=== PATIENT | male | born 1950 ===

== ENCOUNTER 2016-11-22 06:54 | Inpatient (IN) | payer MEDICARE, OTHER ==
[2016-11-22] MEDS ORDERED: Labetalol 5mg/ml (4ml) ONE (07:48)
[2016-11-22] MEDS ORDERED: Albuterol 0.083% Inhal Sol (2.5 mg/3 mL) UD ONE (07:49)
[2016-11-22] MEDS ORDERED: Albuterol 0.083% Inhal Sol (2.5 mg/3 mL) UD INH ONE (07:52)
[2016-11-22] MEDS ORDERED: Labetalol 5 mg/ml Inj 20ML IVP STA (07:52)
--- NOTE | 2016-11-22 08:16 | ED PDOC ---
HPI: SOB/CHF/COPD Time Seen by Provider: 11/22/16 07:05 Chief Complaint (Nursing): Cough, Cold, Congestion Chief Complaint (Provider): Cough, Cold, Congestion History Per: Patient History/Exam Limitations: no limitations Onset/Duration Of Symptoms: Days Current Symptoms Are (Timing): Still Present Initiating Event: Upper Respiratory Illness Quality: Tightness Exacerbating Factor(s): Coughing Current Respiratory Medications: See Home Med List Severity: Mild Additional Complaint(s): Patient is a 66 year old male who presents to ED for evaluation of SOB with cough and congestion for 3 days. no chest pain, fever or vomiting. Patient reports a history of HTN but has been non-compliant with medication. States [place] but has not followed up with doctors in years Past Medical History Reviewed: Historical Data, Nursing Documentation, Vital Signs Vital Signs: Last Vital Signs Temp 98.5 F 11/22/16 07:07 Pulse 110 H 11/22/16 11:37 Resp 20 11/22/16 08:10 BP 167/112 H 11/22/16 09:06 Pulse Ox 95 11/22/16 11:37 - Medical History PMH: HTN - Surgical History Surgical History: Cholecystectomy - Family History Family History: States: No Known Family Hx - Living Arrangements Living Arrangements: With Family - Social History Current smoker - smoking cessation education provided: No Alcohol: None Drugs: Denies - Home Medications Home Medications: Ambulatory Orders Medication Instructions Recorded Losartan [Cozaar] 100 mg PO DAILY 11/22/16 amLODIPine [Norvasc] 5 mg PO DAILY 11/22/16 - Allergies Allergies/Adverse Reactions: Allergies Allergy/AdvReac Type Severity Reaction Status Date / Time No Known Allergies Allergy Verified 11/22/16 07:11 Review of Systems ROS Statement: Except As Marked, All Systems Reviewed And Found Negative Constitutional: Negative for: Fever, Chills Cardiovascular: Negative for: Chest Pain, Palpitations, Light Headedness Respiratory: Positive for: Cough, Shortness of Breath. Negative for: SOB with Exertion Gastrointestinal: Negative for: Vomiting, Diarrhea Musculoskeletal: Negative for: Neck Pain Neurological: Negative for: Weakness, Numbness, Dizziness Physical Exam - Reviewed Nursing Documentation Reviewed: Yes Vital Signs Reviewed: Yes - Physical Exam Appears: Positive for: Non-toxic, No Acute Distress Skin: Positive for: Normal Color, Warm. Negative for: Rash Eye Exam: Positive for: Normal appearance Neck: Positive for: Normal, Painless ROM Cardiovascular/Chest: Positive for: Regular Rate, Rhythm, Chest Non Tender. Negative for: Murmur Respiratory: Positive for: Decreased Breath Sounds (bilaterally ), Rhonchi ( bilateral). Negative for: Accessory Muscle Use, Wheezing, Respiratory Distress Gastrointestinal/Abdominal: Positive for: Normal Exam (obese). Negative for: Tenderness, Distended Back: Positive for: Normal Inspection Extremity: Positive for: Normal ROM, Pedal Edema Neurologic/Psych: Positive for: Alert, Oriented - Laboratory Results Result Diagrams: 11/22/16 08:26 11/22/16 08:26 - ECG ECG: Positive for: Interpreted By Me ECG Rhythm: Positive for: Normal ST Segment, Right Bundle Branch Block, Premature Ventricular Contraction Rate: 110 O2 Sat by Pulse Oximetry: 95 (RA) Pulse Ox Interpretation: Normal - Radiology X-Ray: Interpreted by Me, Viewed By Me X-Ray Interpretation: Other (chf) - Critical Care Total Time (In Min): 30 Medical Decision Making Medical Decision Making: Time: 0750 Initial impression: SOB with cough Initial plan: -- EKG -- BnP -- CMP -- Troponin -- CBC -- CXR -- Albuterol and Trandate Time: 0900 Lab results reviewed Troponin elevated [place] 4.07 [place] [id number] Time: 0810 Supply Chain Development Manager continuous improvement director, Dr. Hatfield aware of pt- requesting heparin and will evaluate patient at bedside Time: 1030 Dr. Brown accepted patient for admission (med continuous improvement director, pts doc not here) Diagnosis: Non ST elevation OH and hypertensive urgency Time: 1115 CXR results reviewed HISTORY: short of breath COMPARISON: No prior. TECHNIQUE: Chest PA and lateral FINDINGS: LUNGS: Mild mild pulmonary venous congestion with bibasilar atelectasis and/or early developing alveolar-type infiltrates. Questionable tiny bilateral effusions. PLEURA: As above No pneumothorax apparent. CARDIOVASCULAR: Normal. OSSEOUS STRUCTURES: No significant abnormalities. VISUALIZED UPPER ABDOMEN: Normal. OTHER FINDINGS: None. IMPRESSION: Mild mild pulmonary venous congestion with bibasilar atelectasis and/or early developing alveolar-type infiltrates. Questionable tiny bilateral effusions. Time: 1125 Dr. Petit, Code heart interventionalist, will not take patient at this time due to not being STEMI Dr. Hatfield evaluated patient at bedside and wants patient upgraded to ICU Paging ICU at this time Time: 1135 ICU electrical superintendent made aware of patient also i ordered antibiotics for possible ?early infiltrate noted on radiologist read of cxr Diagnosis: NSTEMI hypertensive urgency Scribe Attestation: Documented by Maggie Salas acting as a scribe for Radha Rodriguez MD MD Scribe Attestation: All medical record entries made by the Scribe were at my direction and personally dictated by me. I have reviewed the chart and agree that the record accurately reflects my personal performance of the history, physical exam, medical decision making, and the department course for this patient. I have also personally directed, reviewed, and agree with the discharge instructions and disposition.-- EKG Disposition - Clinical Impression Clinical Impression: NSTEMI (non-ST elevated myocardial infarction), Hypertensive urgency, CHF ( congestive heart failure) - Patient ED Disposition Is Patient to be Admitted: Yes - Disposition Disposition Time: 10:00 Condition: STABLE
[2016-11-22 08:40] LABS: BASO # 0.1 K/uL (0.0-0.2); BASO % 0.5 % (0.0-2.0); EOS # 0.2 K/uL (0.0-0.7); EOS % 1.5 % (0.0-4.0); HEMATOCRIT 38.9 % (35.0-51.0); LYMPH # 1.5 K/uL (1.0-4.3); LYMPH % 12.9 % (20.0-40.0); MEAN CELL VOLUME 93.1 fl (80.0-94.0); MEAN CORPUSCULAR HEMOGLOBIN 29.9 pg (27.0-31.0); MEAN CORPUSCULAR HGB CONC 32.1 g/dL (33.0-37.0); MEAN PLATELET VOLUME 8.9 fl (7.2-11.7); MONO # 0.6 K/uL (0.0-0.8); NEUT # 9.2 K/uL (1.8-7.0); NEUT % 80.1 % (50.0-75.0); RED CELL DISTRIBUTION WIDTH 15.3 % (11.5-14.5); WHITE BLOOD COUNT 11.5 K/uL (4.8-10.8)
[2016-11-22 08:43] LABS: ALB/GLOB RATIO 1.2 (1.0-2.1); BILIRUBIN,TOTAL 0.5 mg/dl (0.2-1.3); POTASSIUM 4.7 MMOL/L (3.6-5.0); TOTAL PROTEIN 7.5 G/DL (6.3-8.2)
[2016-11-22 08:57] LABS: TROPONIN I 4.07 ng/mL (0.00-0.120)
--- NOTE | 2016-11-22 11:14 | RAD ---
HISTORY: short of breath COMPARISON: No prior. TECHNIQUE: Chest PA and lateral FINDINGS: LUNGS: Mild mild pulmonary venous congestion with bibasilar atelectasis and/or early developing alveolar-type infiltrates. Questionable tiny bilateral effusions. PLEURA: As above No pneumothorax apparent. CARDIOVASCULAR: Normal. OSSEOUS STRUCTURES: No significant abnormalities. VISUALIZED UPPER ABDOMEN: Normal. OTHER FINDINGS: None. IMPRESSION: Mild mild pulmonary venous congestion with bibasilar atelectasis and/or early developing alveolar-type infiltrates. Questionable tiny bilateral effusions.
[2016-11-22 11:52] LABS: PARTIAL THROMBOPLASTIN TIME 29.4 SECONDS (23.3-32.5)
[2016-11-22] MEDS ORDERED: Heparin 25,000units in D5W 25,000 UNITS/250 ML BAG IV SCH ×2 (12:00→12:30)
[2016-11-22] MEDS ORDERED: Heparin25000 units/250ml 1/2NS 25,000 UNITS/250 ML BAG IV ONE (12:38)
--- NOTE | 2016-11-22 12:52 | CON ---
DATE: 11/22/2016 REASON FOR CONSULTATION: Shortness of breath and acute myocardial infarction. HISTORY OF PRESENT ILLNESS: The patient is a 66-year-old male who has a history of heart at tack some 6 or 7 years ago and does not recall having any intervention. He is on no medications. He noticed shortness of breath since yesterday and what he describes as asthma. The patient has no will or history of bronchial asthma and he presented to the Emergency Room. He denies any retrosternal ch est pain. The patient is unaware of any kidney issues. The patient does not see a physician and bam es no medications at home. SOCIAL HISTORY: Nonsmoker. He is with 2 children who are coming to visit him in few hours a ccording to him. MEDICATIONS: It is listed by ER that the patient was on Norvasc 5 mg once a day, Cozaar 100 mg once a day, but he denied taking any medications to me. REVIEW OF SYSTEMS: No nausea or vomiting. No fever or chills. No dizziness or syncope. PHYSICAL EXAMINATION: GENERAL: The patient is an elderly male who is mildly tachypneic but does not appear to be in acute distress. VITAL SIGNS: Blood pressure 167/112, heart rate 110, temperature 98.5, respirations 20. HEENT: Normocephalic. NECK: No JVD. CHEST: Bilateral diffuse rhonchi. HEART: S1, S2 regular. ABDOMEN: Soft. EXTREMITIES: 2+ pedal edema. LABORATORIES: Hemoglobin and hematocrit are 12.5 and 38.9. White count and platelet count are 11.5 and 258,000. Today's BUN and creatinine are 36 and 3.1 respectively. Troponin is 4.07. ProBNP is 1 4,800. Glucose 113. Chest x-ray revealed normal cardiac silhouette size, moderate CHF. EKG revealed sinus tachycardia at rate 110, left atrial enlargement, right bundle branch block, consider inferior ischemia, PVCs were noted. ASSESSMENT: 1. Acute zxp-AI-uvcnpuely myocardial infarction. 2. Advanced chronic renal insufficiency. 3. Congestive heart failure, most likely ischemic cardiomyopathy. 4. Diabetes mellitus. RECOMMENDATIONS: The case was discussed with the ER physician. The patient was started on heparin b olus followed by continuous infusion. I will start aspirin 325 mg now and daily. Plavix loading dos e of 300 mg will be given now. The patient is not a suitable candidate for FANI inhibitors. I will o btain a bedside echo. The patient will be observed in ICU. The code heart on-call chief deputy, Dr. Rain, was notified with the case and he will be on standby according to the ER physician's discussio n with him. Gopi Monteiro MD cc: [id number] TT: 11/22/2016 12:51:23 Confirmation # [id number] Dictation # [id number] mn
--- NOTE | 2016-11-22 15:08 | CP.CCUPN ---
<Bolivar Dial - Last Filed: 11/22/16 16:14> CCU Subjective - Physician Review Subjective (Free Text): 11/22/16 15:04 66 y/o obese male with PMH of HTN presented to ED with 2 day history of progressive SOB. Patient reports symptoms may have started gradually since one week ago. Initially he thought symptoms were associated with seasonal allergies because of associated itchy eyes and nasal congestion. He presented to a walk-in clinic and was prescribed some type of inhaler, which did not help. Patient reports over the last 2 days he has also felt increasing fatigue and has noticed swelling of his lower extremities. He normally sleeps with 1 pillow at night but has increased to 3 pillows due to SOB. He denies SOB when ambulating around his apartment but does feel SOB upon climbing 8 stairs. Currently patient denies chest pain but notes a feeling of chest tightness. He further denies fevers, chills, headache, dizziness, visual disturbances, focal weakness, abdominal pain, nausea or vomiting. Patient has not been followed by a primary physician for approximately 20 years and has been inconsistently taking antihypertensive medications, which he purchased in [facility]. He was told 5 years ago by a physician in [facility] that he may have suffered a minor heart attack but was not admitted to a hospital at that time. He reports taking amlodipine 5mg twice a day in addition to another unknown BP medication. His mother and father from [place] at ages 74 and 78 respectively. CCU Objective - Vital Signs / Intake & Output Vital Signs (Last 4 hours): Vital Signs Temp Pulse Resp BP Pulse Ox 11/22/16 14:49 98.3 F 76 18 146/99 H 99 11/22/16 14:44 98.3 F 76 18 145/99 H 11/22/16 12:36 154/80 H 11/22/16 12:06 110 H 95 - Physical Exam Head: Positive for: Atraumatic, Normocephalic Pupils: Positive for: PERRL Extroacular Muscles: Positive for: EOMI Conjunctiva: Positive for: Normal Mouth: Positive for: Moist Mucous Membranes Neck: Positive for: Normal Range of Motion Respiratory/Chest: Positive for: Rales (appreciated at lung bases b/l), Other (B /L air entry present. ). Negative for: Respiratory Distress, Accessory Muscle Use, Wheezes, Tachypneic Cardiovascular: Positive for: Regular Rate and Rhythm, Normal S1, S2, Peripheal Pulses Present. Negative for: Tachycardic Abdomen: Positive for: Normal Bowel Sounds. Negative for: Tenderness, Distention, Guarding Upper Extremity: Positive for: Normal Inspection, NORMAL PULSES, Capillary Refill < 2s Lower Extremity: Positive for: Edema (3+). Negative for: CALF TENDERNESS Neurological: Positive for: CN II-XII Intact, Speech Normal Skin: Positive for: Warm, Dry. Negative for: Diaphoretic Psychiatric: Positive for: Alert, Oriented x 3, Normal Insight, Normal Concentration - Medications Active Medications: Active Medications Generic Name Dose Route Start Last Admin Trade Name Freq PRN Reason Stop Dose Admin Heparin Sodium/Dextrose 25,000 units in 250 mls @ 10 mls/hr 11/22/16 12:30 12:53 Heparin 25,000 Units/250ml In D5w IV 10 mls/hr .Q24H CATHY Administration Protocol - Patient Studies Lab Studies: Lab Studies 11/22/16 Range/Units 11:00 PT 10.0 (9.6-11.2) SECONDS INR 0.96 (0.92-1.08) APTT 29.4 (23.3-32.5) SECONDS Laboratory Results - last 24 hr 11/22/16 11:00 PT 10.0 INR 0.96 APTT 29.4 Review of Systems - Constitutional Constitutional: absent: Fever, Chills - EENT Eyes: absent: Change in Vision - Cardiovascular Cardiovascular: Dyspnea, Leg Edema, Other (Chest tightness). absent: Chest Pain - Respiratory Respiratory: Dyspnea, Dyspnea on Exertion. absent: Cough, Wheezing - Gastrointestinal Gastrointestinal: absent: Abdominal Pain, Diarrhea, Nausea, Vomiting - Neurological Neurological: absent: Confusion, Dizziness, Focal Weakness, Paresthesias Assessment/Plan - Assessment and Plan (Free Text) Assessment: 66 y/o obese male with PMH of HTN presented to ED with 2 day history of progressive SOB and chest tightness. In the ED patient was found to have NSTEMI and was admitted to ICU for close monitoring pending further cardiac intervention. Plan: NSTEMI -EKG performed in ED reveals Right bundle branch block nonspecific t wave inversions with no ST elevations -Initial troponin elevated at 4.0700. Continue serial monitoring. -Patient received ASA 325mg and loading dose of Plavix 300mg -Heparin bolus started followed by continuous infusion -ED contacted Dr Petit, code heart interventionalist who is on standby -Cardiology consultation by Dr Monteiro appreciated -Admit to ICU with continuous cardiac monitoring -O2 via NC -Continue daily ASA and plavix -Patient not a good candidate for FANI-i at this time Acute Heart Failure with Preserved Ejection Fraction -Bedside echo reveals normal LV wall thickness and ED of 50-55%. Mild inferior wall hypokinesis was also detected however study was technically difficult. -ProBNP [id number] -Lasix 40mg IV BID -Strict I/Os -Daily weights -Cardiology following Acute vs Chronic Kidney Injury -Patient unaware of any existing kidney disease -BUN/Cr: 36/3.1 -Will consult nephrology Hypertensive urgency -Patient has been inconsistently taking amlodipine 5mg BID and losartan 100mg daily, [place] -Initial BP: 211/127. Currently 146/99. -Received labetalol 20mg IV and clonidine 0.2mg PO once in ED -Will maintain gradual BP lowering to acheive BP goal within several days -Metoprolol 25mg PO Q12 started and will consider Hydralazine as needed DVT Prophylaxis -On heparin drip -SCDs Code Status -Full code <Edwar Chow - Last Filed: 11/22/16 17:14> CCU Objective - Vital Signs / Intake & Output Vital Signs (Last 4 hours): Vital Signs Temp Pulse Resp BP Pulse Ox 11/22/16 14:49 98.3 F 76 18 146/99 H 99 11/22/16 14:44 98.3 F 76 18 145/99 H Intake and Output (Last 8hrs): Intake & Output 11/22/16 11/22/16 11/22/16 06:59 14:59 22:59 Output Total 400 Balance -400 Weight 226 lb Output: Urine 400 Urine, Voided 400 - Medications Active Medications: Active Medications Generic Name Dose Route Start Last Admin Trade Name Freq PRN Reason Stop Dose Admin Aspirin 325 mg 11/23/16 09:00 Aspirin PO DAILY CATHY Clopidogrel Bisulfate 75 mg 11/23/16 09:00 Plavix PO DAILY CATHY Furosemide 40 mg 11/23/16 09:00 Lasix IVP BID CATHY Heparin Sodium/Dextrose 25,000 units in 250 mls @ 10 mls/hr 11/22/16 12:30 12:53 Heparin 25,000 Units/250ml In D5w IV 10 mls/hr .Q24H CATHY Administration Protocol Sodium Chloride 1,000 mls @ 60 mls/hr 11/22/16 17:15 Sodium Chloride 0.9% IV 11/23/16 17:09 .[id number] CATHY Metoprolol Tartrate 25 mg 11/22/16 21:00 Lopressor PO Q12 CATHY Morphine Sulfate 2 mg 11/22/16 15:39 Morphine IVP Q6H PRN Pain, moderate (4-7) - Patient Studies Lab Studies: Lab Studies 11/22/16 Range/Units 11:00 PT 10.0 (9.6-11.2) SECONDS INR 0.96 (0.92-1.08) APTT 29.4 (23.3-32.5) SECONDS Laboratory Results - last 24 hr 11/22/16 11:00 PT 10.0 INR 0.96 APTT 29.4 Critical Care Progress Note - Nutrition Nutrition: Nutrition Category Date Time Status Heart Healthy Diet [DIET] Diets 11/22/16 Dinner Active Attending/Attestation - Attestation I have personally seen and examined this patient.: Yes I have fully participated in the care of the patient.: Yes I have reviewed all pertinent clinical information: Yes Notes (Text): 11/22/16 17:11 I have seen and examined the patient. Medical records, lab studies, and imaging were reviewed by me and a management plan was formulated on multidisciplinary rounds with resident Dr. Dial. I agree with their above documented assessment and plan. Patient presented with NSTEMI, on heparin drip, plavix, ASA, metoprolol bid. HTN emergency with acute on chronic CKD, blood pressure controlled, will not reduce more than 25% in the first 24h. Gradual reduction over 24-48h. Cardiology consulted and following. Critical Care Time 35 minutes. Multi-disciplinary rounds were performed with house staff, nursing, speech therapy, respiratory therapy, pharmacy and nutrition with integrated input from the primary team/attending and other consulting services. The documented time is cumulative and includes review of patient data/exams/labs/chart review and examination of the patient on rounds and throughout the day; time is exclusive of any procedures or teaching time. 11/22/16 17:12
--- NOTE | 2016-11-22 15:27 | CARD ---
APPROVED REPORT EXAM: Two-dimensional and M-mode echocardiogram with Doppler and color Doppler. Other Information Quality : AverageRhythm : PVC's INDICATION Hypertension/HCVD Non STEMI WI 2D DIMENSIONS IVSd1.30 (0.7-1.1cm)LVDd4.00 (3.9-5.9cm) LVOT Diameter2.64 (1.8-2.4cm)PWd1.85 (0.7-1.1cm) IVSs1.89 (0.8-1.2cm)LVDs3.66 (2.5-4.0cm) FS (%) 8.5 %PWs1.69 (0.8-1.2cm) M-Mode DIMENSIONS Left Atrium (MM)5.79 (2.5-4.0cm)IVSd1.12 (0.7-1.1cm) Aortic Root3.20 (2.2-3.7cm)LVDd7.18 (4.0-5.6cm) Aortic Cusp Exc.2.16 (1.5-2.0cm)PWd1.20 (0.7-1.1cm) IVSs1.93 cmFS (%) 26 % LVDs5.29 (2.0-3.8cm)PWs1.81 cm Mitral Valve MV E Nywrierm94.6cm/sMV DECEL [id number] A Zntsfkwb86.8cm/s MV [id number]/A ratio1.7MVA (PHT)4.21cm2 TDI Lateral E' Peak V7.74cm/sMedial E' Peak V4.89cm/sE/Lateral E'8.9 E/Medial E'14.0 LEFT VENTRICLE The left ventricle is normal size. There is normal left ventricular wall thickness. The left ventricular function is normal. The left ventricular ejection fraction is 50-55% There is mild inferior wall hypokinesis. The apex and infero-apex could not be well visualized. The left ventricular diastolic function is normal. No left ventricle thrombus noted on this study. There is no ventricular septal defect visualized. There is no left ventricular aneurysm. There is no mass noted in the left ventricle. RIGHT VENTRICLE The right ventricle is normal size. There is normal right ventricular wall thickness. The right ventricular systolic function is normal. ATRIA The left atrium size is normal. The right atrium size is normal. The interatrial septum is intact with no evidence for an atrial septal defect. AORTIC VALVE The aortic valve is normal in structure and function. No aortic regurgitation is present. There is no aortic valvular stenosis. There is no aortic valvular vegetation. MITRAL VALVE The mitral valve is normal in structure and function. There is no evidence of mitral valve prolapse. There is no mitral valve stenosis. There is no mitral valve regurgitation noted. TRICUSPID VALVE The tricuspid valve is normal in structure and function. There is no tricuspid valve regurgitation noted. There is no tricuspid valve prolapse or vegetation. There is no tricuspid valve stenosis. PULMONIC VALVE The pulmonary valve is normal in structure and function. There is no pulmonic valvular regurgitation. There is no pulmonic valvular stenosis. GREAT VESSELS The aortic root is normal in size. The ascending aorta is normal in size. The IVC is normal in size and collapses >50% with inspiration. PERICARDIAL EFFUSION The pericardium appears normal. There is no pleural effusion. <Conclusion> Technically Difficult Study All myocardial segments were not clearly visualized Mild Inferior wall hypokinesis( seen best in short axis) Normal LV systolic function
[2016-11-22 15:35] VITALS: BMI 36.4
[2016-11-22] MEDS ORDERED: Sodium Chloride 0.9% 1,000 ML IV SCH (17:15)
--- NOTE | 2016-11-22 21:38 | CP.PCM.CON ---
History of Present Illness - History of Present Illness History of Present Illness: REASON FOR CONSULT : ACUTE Vs CKD Vs A ON CKD THIS IS VERY FIRST ADMISSION FOR THIS PT .. NO PREVIOUS EMR EXIST CHART REVIEWED .. PT EXAMINED 66 y/o obese male with PMH of HTN presented to ED with 2 day history of progressive SOB. Patient reports symptoms may have started gradually since one week ago. Initially he thought symptoms were associated with seasonal allergies because of associated itchy eyes and nasal congestion. He presented to a walk-in clinic and was prescribed some type of inhaler, which did not help. Patient reports over the last 2 days he has also felt increasing fatigue and has noticed swelling of his lower extremities. He normally sleeps with 1 pillow at night but has increased to 3 pillows due to SOB. He denies SOB when ambulating around his apartment but does feel SOB upon climbing 8 stairs. Currently patient denies chest pain but notes a feeling of chest tightness. He further denies fevers, chills, headache, dizziness, visual disturbances, focal weakness, abdominal pain, nausea or vomiting. Patient has not been followed by a primary physician for approximately 20 years and has been inconsistently taking antihypertensive medications, which he purchased in [facility]. He was told 5 years ago by a physician in [facility] that he may have suffered a minor heart attack but was not admitted to a hospital at that time. He reports taking amlodipine 5mg twice a day in addition to another unknown BP medication. His mother and father from [place] at ages 74 and 78 respectively. CCU Objective - Vital Signs / Intake & Output Vital Signs (Last 4 hours): Vital Signs Temp Pulse Resp BP Pulse Ox 11/22/16 14:49 98.3 F 76 18 146/99 H 99 11/22/16 14:44 98.3 F 76 18 145/99 H 11/22/16 12:36 154/80 H 11/22/16 12:06 110 H 95 - Physical Exam Head: Positive for: Atraumatic, Normocephalic Pupils: Positive for: PERRL Extroacular Muscles: Positive for: EOMI Conjunctiva: Positive for: Normal Mouth: Positive for: Moist Mucous Membranes Neck: Positive for: Normal Range of Motion Respiratory/Chest: Positive for: Rales (appreciated at lung bases b/l), Other (B /L air entry present. ). Negative for: Respiratory Distress, Accessory Muscle Use, Wheezes, Tachypneic Cardiovascular: Positive for: Regular Rate and Rhythm, Normal S1, S2, Peripheal Pulses Present. Negative for: Tachycardic Abdomen: Positive for: Normal Bowel Sounds. Negative for: Tenderness, Distention, Guarding Upper Extremity: Positive for: Normal Inspection, NORMAL PULSES, Capillary Refill < 2s Lower Extremity: Positive for: Edema (3+). Negative for: CALF TENDERNESS Neurological: Positive for: CN II-XII Intact, Speech Normal Skin: Positive for: Warm, Dry. Negative for: Diaphoretic Psychiatric: Positive for: Alert, Oriented x 3, Normal Insight, Normal Concentration Past Patient History - Past Medical History & Family History Past Medical History?: Yes - Past Social History Smoking Status: Never Smoked - CARDIAC Hx Cardiac Disorders: Yes (HTN) Hx Hypertension: Yes - PULMONARY Hx Asthma: No - NEUROLOGICAL Hx Neurological Disorder: No - HEENT Hx HEENT Problems: No - RENAL Hx Chronic Kidney Disease: No - ENDOCRINE/METABOLIC Hx Endocrine Disorders: No - HEMATOLOGICAL/ONCOLOGICAL Hx Blood Disorders: No - INTEGUMENTARY Hx Dermatological Problems: No - MUSCULOSKELETAL/RHEUMATOLOGICAL Hx Musculoskeletal Disorders: No Hx Falls: No - GASTROINTESTINAL Hx Gastrointestinal Disorders: No - GENITOURINARY/GYNECOLOGICAL Hx Genitourinary Disorders: No - PSYCHIATRIC Hx Psychophysiologic Disorder: No Hx Substance Use: No - SURGICAL HISTORY Hx Cholecystectomy: Yes - ANESTHESIA Hx Anesthesia: Yes Hx Anesthesia Reactions: No Meds Allergies/Adverse Reactions: Allergies Allergy/AdvReac Type Severity Reaction Status Date / Time No Known Allergies Allergy Verified 11/22/16 07:11 - Medications Medications: Current Medications Aspirin (Aspirin) 325 mg PO DAILY [facility] Clopidogrel Bisulfate (Plavix) 75 mg PO DAILY [facility] Furosemide (Lasix) 40 mg IVP BID [facility] Heparin Sodium/Dextrose (Heparin 25,000 Units/250ml In D5w) 25,000 units in 250 mls @ 10 mls/hr IV .Q24H CATHY PRN Reason: Protocol Last Admin: 11/22/16 12:53 Dose: 10 mls/hr Sodium Chloride (Sodium Chloride 0.9%) 1,000 mls @ 60 mls/hr IV .[id number] [facility] Stop: 11/23/16 17:09 Last Admin: 11/22/16 18:00 Dose: 60 mls/hr Metoprolol Tartrate (Lopressor) 25 mg PO Q12 CATHY Last Admin: 11/22/16 21:14 Dose: 25 mg Morphine Sulfate (Morphine) 2 mg IVP Q6H PRN PRN Reason: Pain, moderate (4-7) Results - Vital Signs Recent Vital Signs: Last Vital Signs Temp 98.5 F 11/22/16 20:00 Pulse 79 11/22/16 21:14 Resp 20 11/22/16 20:00 BP 158/117 H 11/22/16 21:14 Pulse Ox 97 11/22/16 20:00 - Labs Result Diagrams: 11/22/16 08:26 11/22/16 08:26 Labs: Laboratory Results - last 24 hr 11/22/16 11/22/16 11/22/16 11:00 19:15 19:15 PT 10.0 INR 0.96 APTT 29.4 51.5 H Troponin I 2.8600 H* Assessment & Plan - Assessment and Plan (Free Text) Assessment: WANDY Vs CKD Vs A ON CKD .. UNKNOWN AT PRESENT .. PT DENIES PREVIOUS H/O RENAL ISSEUS UNCONTROLED HTN [place] P : RENAL SONO C/O CURRENT MEDS U/A URINE LYTES WILL FOLLOW RENAL FUNCTION CLOSELY - Date & Time Date: 11/22/16 Time: 18:00
[2016-11-23] MEDS ORDERED: Albuterol 0.083% Inhal Sol (2.5 mg/3 mL) UD INH ONE (00:11)
[2016-11-23] MEDS ORDERED: Labetalol 5 mg/ml Inj 20ML IVP STA (04:18)
[2016-11-23] MEDS ORDERED: Labetalol 5mg/ml (4ml) ONE (04:18)
[2016-11-23] MEDS ORDERED: Labetalol 5mg/ml (4ml) IVP STA (04:31)
[2016-11-23 05:28] LABS: BASO % 0.4 % (0.0-2.0); EOS # 0.2 K/uL (0.0-0.7); EOS % 2.2 % (0.0-4.0); HEMATOCRIT 34.9 % (35.0-51.0); LYMPH # 1.2 K/uL (1.0-4.3); LYMPH % 14.4 % (20.0-40.0); MEAN CELL VOLUME 92.5 fl (80.0-94.0); MEAN CORPUSCULAR HEMOGLOBIN 30.4 pg (27.0-31.0); MEAN CORPUSCULAR HGB CONC 32.9 g/dL (33.0-37.0); MEAN PLATELET VOLUME 8.6 fl (7.2-11.7); MONO # 0.5 K/uL (0.0-0.8); MONO % 5.6 % (0.0-10.0); NEUT # 6.6 K/uL (1.8-7.0); NEUT % 77.4 % (50.0-75.0); RED CELL DISTRIBUTION WIDTH 15.5 % (11.5-14.5); WHITE BLOOD COUNT 8.5 K/uL (4.8-10.8)
[2016-11-23 05:29] LABS: ALB/GLOB RATIO 1.2 (1.0-2.1); BILIRUBIN,TOTAL 0.6 mg/dl (0.2-1.3); CALCIUM 8.4 mg/dL (8.4-10.2); POTASSIUM 3.9 MMOL/L (3.6-5.0); TOTAL PROTEIN 6.6 G/DL (6.3-8.2)
[2016-11-23 05:42] LABS: TROPONIN I 2.28 ng/mL (0.00-0.120)
[2016-11-23 05:59] LABS: THYROID STIMULATING HORMONE 1.19 mIU/ML (0.46-4.68)
[2016-11-23] MEDS ORDERED: Heparin 25,000units in D5W 25,000 UNITS/250 ML BAG IV SCH (06:00)
[2016-11-23] MEDS: Heparin25000 units/250ml 1/2NS 25,000 UNITS/250 ML BAG IV SCH ×2 (06:18→11:07)
[2016-11-23] MEDS ORDERED: Nitroglycerin 50mg in D5W 50 MG/250 ML BOTTLE IV ONE ×2 (08:58→09:21)
[2016-11-23] MEDS ORDERED: Pneumococcal 23-Valent Vaccine IM ONE (09:00)
--- NOTE | 2016-11-23 10:58 | CP.PCM.HP ---
<Mirian Toro - Last Filed: 11/23/16 10:55> History of Present Illness - History of Present Illness History of Present Illness: 66yo M with PMHx HTN admitted for NSTEMI. Pt c/o SOB x2 days a/w exercise intolerance, has not improved. Denies chest pain at any point recently. Non compliant with medications PMHx: as above SHx: cholecytectomy FHx: NC Allergies: NKDA evaluated with attending Present on Admission - Present on Admission Any Indicators Present on Admission: No Review of Systems - Constitutional Constitutional: absent: Chills, Fever - Cardiovascular Cardiovascular: Dyspnea, Dyspnea on Exertion. absent: Chest Pain - Respiratory Respiratory: Dyspnea - Gastrointestinal Gastrointestinal: absent: Abdominal Pain, Diarrhea, Nausea, Vomiting - Genitourinary Genitourinary: absent: Dysuria, Hematuria - Musculoskeletal Musculoskeletal: absent: Back Pain - Neurological Neurological: absent: Headaches Past Patient History - Past Medical History & Family History Past Medical History?: Yes - Past Social History Smoking Status: Never Smoked - CARDIAC Hx Cardiac Disorders: Yes (HTN) Hx Hypertension: Yes - PULMONARY Hx Asthma: No - NEUROLOGICAL Hx Neurological Disorder: No - HEENT Hx HEENT Problems: No - RENAL Hx Chronic Kidney Disease: No - ENDOCRINE/METABOLIC Hx Endocrine Disorders: No - HEMATOLOGICAL/ONCOLOGICAL Hx Blood Disorders: No - INTEGUMENTARY Hx Dermatological Problems: No - MUSCULOSKELETAL/RHEUMATOLOGICAL Hx Musculoskeletal Disorders: No Hx Falls: No - GASTROINTESTINAL Hx Gastrointestinal Disorders: No - GENITOURINARY/GYNECOLOGICAL Hx Genitourinary Disorders: No - PSYCHIATRIC Hx Psychophysiologic Disorder: No Hx Substance Use: No - SURGICAL HISTORY Hx Cholecystectomy: Yes - ANESTHESIA Hx Anesthesia: Yes Hx Anesthesia Reactions: No Meds Allergies/Adverse Reactions: Allergies Allergy/AdvReac Type Severity Reaction Status Date / Time No Known Allergies Allergy Verified 11/22/16 07:11 Physical Exam - Constitutional Appears: Non-toxic, No Acute Distress - Head Exam Head Exam: ATRAUMATIC, NORMAL INSPECTION - Eye Exam Eye Exam: Normal appearance - ENT Exam ENT Exam: Mucous Membranes Moist - Neck Exam Neck exam: Positive for: Normal Inspection - Respiratory Exam Respiratory Exam: Clear to Auscultation Bilateral - Cardiovascular Exam Cardiovascular Exam: REGULAR RHYTHM - GI/Abdominal Exam GI & Abdominal Exam: Soft - Extremities Exam Extremities exam: Positive for: normal inspection - Neurological Exam Neurological exam: Alert, Oriented x3 - Skin Skin Exam: Dry, Warm Results - Vital Signs Recent Vital Signs: Last Vital Signs Temp 98.0 F 11/23/16 07:40 Pulse 89 11/23/16 09:00 Resp 23 11/23/16 07:40 BP 198/140 H 11/23/16 09:00 Pulse Ox 98 11/23/16 07:40 - Labs Result Diagrams: 11/23/16 04:20 11/23/16 04:20 Labs: Laboratory Results - last 24 hr 11/22/16 11/22/16 11/22/16 11:00 19:15 19:15 WBC RBC Hgb Hct MCV MCH MCHC RDW Plt Count MPV Neut % (Auto) Lymph % (Auto) [place] % (Auto) Eos % (Auto) Baso % (Auto) Neut # Lymph # [place] # Eos # Baso # PT 10.0 INR 0.96 APTT 29.4 51.5 H Sodium Potassium Chloride Carbon Dioxide Anion Gap BUN Creatinine Est GFR ( Amer) Est GFR (Non-Af Amer) Random Glucose Calcium Total Bilirubin AST ALT Alkaline Phosphatase Troponin I 2.8600 H* Total Protein Albumin Globulin Albumin/Globulin Ratio Triglycerides Cholesterol LDL Cholesterol Direct HDL Cholesterol TSH 3rd Generation 11/23/16 11/23/16 11/23/16 04:00 04:20 04:20 WBC 8.5 RBC 3.77 L Hgb 11.5 L Hct 34.9 L MCV 92.5 MCH 30.4 MCHC 32.9 L RDW 15.5 H Plt Count 220 MPV 8.6 Neut % (Auto) 77.4 H Lymph % (Auto) 14.4 L [place] % (Auto) 5.6 Eos % (Auto) 2.2 Baso % (Auto) 0.4 Neut # 6.6 Lymph # 1.2 [place] # 0.5 Eos # 0.2 Baso # 0.0 PT INR APTT 39.8 H Sodium 139 Potassium 3.9 Chloride 102 Carbon Dioxide 25 Anion Gap 15 BUN 37 H Creatinine 2.8 H Est GFR ( Amer) 27 Est GFR (Non-Af Amer) 23 Random Glucose 106 Calcium 8.4 Total Bilirubin 0.6 AST 34 ALT 55 Alkaline Phosphatase 69 Troponin I 2.2800 H* Total Protein 6.6 Albumin 3.6 Globulin 3.0 Albumin/Globulin Ratio 1.2 Triglycerides 97 Cholesterol 166 LDL Cholesterol Direct 97 HDL Cholesterol 39 TSH 3rd Generation 1.19 Assessment & Plan - Assessment and Plan (Free Text) Assessment: 66yo M with PMHx HTN admitted for NSTEMI. NSTEMI -ECHO LVEF 50-55%, myocardial segments not well visualized, mild inferior wall hypokinesis -EKG changes indicate NSTEMI -troponin + -JODY risk score:4, 20% risk of 14 day mortality/NC/ischemia -cardio on board, appreciate input -ladle patcher on board, appreciate input -ASA, plavix -heparin drip -statin HTN -uncontrolled -nitro drip -c/w home meds -ladle patcher on board, appreciate input pneumonia -Zosyn acute on CKD -nephro on board, appreciate input CHF exacerbation -ECHO LVEF 50-55%, myocardial segments not well visualized, mild inferior wall hypokinesis -lasix IV -cardio on board, appreciate input DVT ppx -heparin drip Decision To Admit - Pt Status Changed To: Hospital Disposition Of: Inpatient - Admit Certification Admit to Inpatient:: After my assessment, the patient will require hospitalization for at least two midnights. This is because of the severity of symptoms shown, intensity of services needed, and/or the medical risk in this patient being treated as an outpatient. - . Bed Request Type: Intensive Care Admitting Physician: Trev Brown <Trev Brown - Last Filed: 11/25/16 17:53> Results - Vital Signs Recent Vital Signs: Last Vital Signs Temp 98.4 F 11/25/16 16:00 Pulse 73 11/25/16 16:00 Resp 19 11/25/16 16:00 BP 150/90 11/25/16 16:00 Pulse Ox 100 11/25/16 16:00 - Labs Result Diagrams: 11/25/16 04:40 11/25/16 04:40 Labs: Laboratory Results - last 24 hr 11/25/16 11/25/16 11/25/16 04:40 04:40 12:20 WBC 9.8 RBC 3.63 L Hgb 11.1 L Hct 33.7 L MCV 92.7 MCH 30.5 MCHC 32.9 L RDW 15.6 H Plt Count 236 PT 10.6 INR 1.02 APTT 27.8 D Sodium 138 Potassium 3.8 Chloride 99 Carbon Dioxide 27 Anion Gap 16 BUN 40 H Creatinine 3.4 H Est GFR ( Amer) 22 Est GFR (Non-Af Amer) 18 Random Glucose 142 H Calcium 8.9 Total Bilirubin 0.4 AST 20 ALT 42 Alkaline Phosphatase 60 Total Protein 6.9 Albumin 3.8 Globulin 3.1 Albumin/Globulin Ratio 1.2 Assessment & Plan - Assessment and Plan (Free Text) Assessment: Patient seen and examined with residents in rounds. Case, condition, investigative work up and plan discussed in detail. Agree with residents progress note. Plan: As ordered. (Trev Brown MD)
--- NOTE | 2016-11-23 11:16 | US ---
PROCEDURE: Ultrasound of the Kidneys HISTORY: WANDY Vs CKD .. R/O OBSTRUCTION .. AND FOR SIZE AND COMPARISON: None available. TECHNIQUE: Sonogram of the kidneys. FINDINGS: RIGHT KIDNEY: Measures: 5.3 x 0.7 cm. Normal in size, contour and echogenicity. No stone, solid mass lesion or hydronephrosis visualized. LEFT KIDNEY: Measures: 5.6 x 9.5 cm. Normal in size, contour and echogenicity. No stone, solid mass lesion or hydronephrosis visualized. Incidental finding(s): Midpole cyst 10 x 19 mm. OTHER FINDINGS: None. IMPRESSION: No significant or acute findings to account for/ related to the clinical presentation. AllUnremarkable renal sonogram.
--- NOTE | 2016-11-23 11:38 | CP.CCUPN ---
Addendum entered and electronically signed by Bolivar Dial MD 11/23/16 15:43 : Spoke with filbert grower and patient. Plan for possible cardiac catheterization tomorrow. Will start acetylcysteine bid today. Original Note: <Bolivar Dial - Last Filed: 11/23/16 12:35> CCU Subjective - Physician Review Subjective (Free Text): 11/23/16 13:25 Patient seen and examined at bedside with ICU attending during morning rounds. He is sitting upright in bed and appears comfortable. Patient denies chest pain overnight but did have sensation of chest tightness. His BP was elevated overnight requiring labetalol and hydralazine. This morning he was started on nitroglycerin drip. He has been urinating freely overnight and is currently at - 750ml fluid balance. CCU Objective - Vital Signs / Intake & Output Vital Signs (Last 4 hours): Vital Signs Temp Pulse Resp BP Pulse Ox 11/23/16 09:00 89 198/140 H 11/23/16 08:43 196/127 H 11/23/16 07:40 98.0 F 83 23 189/114 H 98 Intake and Output (Last 8hrs): Intake & Output 11/22/16 11/23/16 11/23/16 22:59 06:59 14:59 Intake Total 660 810 Output Total 1820 400 Balance -1160 410 Weight 226 lb Intake: IV 300 810 Oral 360 Output: Urine 1820 400 Urine, Voided 1820 400 Other: # Voids Urine, Voided 425 - Physical Exam Head: Positive for: Atraumatic, Normocephalic Pupils: Positive for: PERRL Extroacular Muscles: Positive for: EOMI Conjunctiva: Positive for: Normal Mouth: Positive for: Moist Mucous Membranes Neck: Positive for: Normal Range of Motion Respiratory/Chest: Positive for: Rales (appreciated at lung bases b/l), Other (B /L air entry present. ). Negative for: Respiratory Distress, Accessory Muscle Use, Wheezes, Tachypneic Cardiovascular: Positive for: Regular Rate and Rhythm, Normal S1, S2, Peripheal Pulses Present. Negative for: Tachycardic Abdomen: Positive for: Normal Bowel Sounds. Negative for: Tenderness, Distention, Guarding Upper Extremity: Positive for: Normal Inspection, NORMAL PULSES, Capillary Refill < 2s Lower Extremity: Positive for: Edema (1+). Negative for: CALF TENDERNESS Neurological: Positive for: CN II-XII Intact, Speech Normal Skin: Positive for: Warm, Dry. Negative for: Diaphoretic Psychiatric: Positive for: Alert, Oriented x 3, Normal Insight, Normal Concentration - Medications Active Medications: Active Medications Generic Name Dose Route Start Last Admin Trade Name Freq PRN Reason Stop Dose Admin Aspirin 325 mg 11/23/16 09:00 11/23/16 08:00 Aspirin PO 325 mg DAILY CATHY Administration Clopidogrel Bisulfate 75 mg 11/23/16 09:00 11/23/16 07:59 Plavix PO 75 mg DAILY CATHY Administration Furosemide 40 mg 11/23/16 09:00 11/23/16 08:43 Lasix IVP 40 mg BID CATHY Administration Sodium Chloride 1,000 mls @ 60 mls/hr 11/22/16 17:15 11/22/16 18:00 Sodium Chloride 0.9% IV 11/23/16 17:09 60 mls/hr .[id number] CATHY Administration Heparin Sodium/Sodium Chloride 25,000 units in 250 mls @ 12 mls/hr 11/23/16 06 :15 11/23/16 11:07 Heparin 96863 Units/250ml 1/2 Normal Saline IV 1,200 mls/hr .[id number] CATHY Administration Protocol Piperacillin Sod/Tazobactam 100 mls @ 100 mls/hr 11/23/16 09:00 11/23/16 11: 07 Sod 2.25 gm/ Sodium Chloride IVPB 100 mls/hr Q8 CATHY Administration Nitroglycerin/Dextrose 50 mg in 250 mls @ 1.5 mls/hr 11/23/16 09:21 11/23/16 09:00 Nitroglycerin 50 Mg/250 Ml D5w IV 11/24/16 09:20 5 mcg/min .Q24H ONE 1.5 mls/hr Protocol Administration 5 MCG/MIN Metoprolol Tartrate 25 mg 11/22/16 21:00 11/23/16 07:59 Lopressor PO 25 mg Q12 CATHY Administration Morphine Sulfate 2 mg 11/22/16 15:39 Morphine IVP Q6H PRN Pain, moderate (4-7) - Patient Studies Lab Studies: Lab Studies 05/24/17 05/24/17 05/24/17 Range/Units 04:20 04:20 04:00 WBC 8.5 (4.8-10.8) K/uL RBC 3.77 L (4.40-5.90) Mil/uL Hgb 11.5 L (12.0-18.0) g/dL Hct 34.9 L (35.0-51.0) % MCV 92.5 (80.0-94.0) fl MCH 30.4 (27.0-31.0) pg MCHC 32.9 L (33.0-37.0) g/dL RDW 15.5 H (11.5-14.5) % Plt Count 220 (130-400) K/uL MPV 8.6 (7.2-11.7) fl Neut % (Auto) 77.4 H (50.0-75.0) % Lymph % (Auto) 14.4 L (20.0-40.0) % [place] % (Auto) 5.6 (0.0-10.0) % Eos % (Auto) 2.2 (0.0-4.0) % Baso % (Auto) 0.4 (0.0-2.0) % Neut # 6.6 (1.8-7.0) K/uL Lymph # 1.2 (1.0-4.3) K/uL [place] # 0.5 (0.0-0.8) K/uL Eos # 0.2 (0.0-0.7) K/uL Baso # 0.0 (0.0-0.2) K/uL PT (9.6-11.2) SECONDS INR (0.92-1.08) APTT 39.8 H (23.3-32.5) SECONDS Sodium 139 (132-148) mmol/l Potassium 3.9 (3.6-5.0) MMOL/L Chloride 102 (98-107) mmol/L Carbon Dioxide 25 (22-30) mmol/L Anion Gap 15 (10-20) BUN 37 H (9-20) mg/dl Creatinine 2.8 H (0.8-1.5) mg/dL Est GFR ( Amer) 27 Est GFR (Non-Af Amer) 23 Random Glucose 106 (75-110) mg/dL Calcium 8.4 (8.4-10.2) mg/dL Total Bilirubin 0.6 (0.2-1.3) mg/dl AST 34 (17-59) U/L ALT 55 (21-72) U/L Alkaline Phosphatase 69 (38-126) U/L Troponin I 2.2800 H* (0.00-0.120) ng/mL Total Protein 6.6 (6.3-8.2) G/DL Albumin 3.6 (3.5-5.0) g/dL Globulin 3.0 (2.2-3.9) gm/dL Albumin/Globulin Ratio 1.2 (1.0-2.1) Triglycerides 97 (0-149) mg/DL Cholesterol 166 (0-199) mg/dL LDL Cholesterol Direct 97 (0-129) mg/dL HDL Cholesterol 39 (30-70) MG/DL TSH 3rd Generation 1.19 (0.46-4.68) mIU/ML 11/22/16 11/22/16 11/22/16 Range/Units 19:15 19:15 11:00 WBC (4.8-10.8) K/uL RBC (4.40-5.90) Mil/uL Hgb (12.0-18.0) g/dL Hct (35.0-51.0) % MCV (80.0-94.0) fl MCH (27.0-31.0) pg MCHC (33.0-37.0) g/dL RDW (11.5-14.5) % Plt Count (130-400) K/uL MPV (7.2-11.7) fl Neut % (Auto) (50.0-75.0) % Lymph % (Auto) (20.0-40.0) % [place] % (Auto) (0.0-10.0) % Eos % (Auto) (0.0-4.0) % Baso % (Auto) (0.0-2.0) % Neut # (1.8-7.0) K/uL Lymph # (1.0-4.3) K/uL [place] # (0.0-0.8) K/uL Eos # (0.0-0.7) K/uL Baso # (0.0-0.2) K/uL PT 10.0 (9.6-11.2) SECONDS INR 0.96 (0.92-1.08) APTT 51.5 H 29.4 (23.3-32.5) SECONDS Sodium (132-148) mmol/l Potassium (3.6-5.0) MMOL/L Chloride (98-107) mmol/L Carbon Dioxide (22-30) mmol/L Anion Gap (10-20) BUN (9-20) mg/dl Creatinine (0.8-1.5) mg/dL Est GFR ( Amer) Est GFR (Non-Af Amer) Random Glucose (75-110) mg/dL Calcium (8.4-10.2) mg/dL Total Bilirubin (0.2-1.3) mg/dl AST (17-59) U/L ALT (21-72) U/L Alkaline Phosphatase (38-126) U/L Troponin I 2.8600 H* (0.00-0.120) ng/mL Total Protein (6.3-8.2) G/DL Albumin (3.5-5.0) g/dL Globulin (2.2-3.9) gm/dL Albumin/Globulin Ratio (1.0-2.1) Triglycerides (0-149) mg/DL Cholesterol (0-199) mg/dL LDL Cholesterol Direct (0-129) mg/dL HDL Cholesterol (30-70) MG/DL TSH 3rd Generation (0.46-4.68) mIU/ML Laboratory Results - last 24 hr 11/22/16 11/22/16 11/22/16 11:00 19:15 19:15 WBC RBC Hgb Hct MCV MCH MCHC RDW Plt Count MPV Neut % (Auto) Lymph % (Auto) [place] % (Auto) Eos % (Auto) Baso % (Auto) Neut # Lymph # [place] # Eos # Baso # PT 10.0 INR 0.96 APTT 29.4 51.5 H Sodium Potassium Chloride Carbon Dioxide Anion Gap BUN Creatinine Est GFR ( Amer) Est GFR (Non-Af Amer) Random Glucose Calcium Total Bilirubin AST ALT Alkaline Phosphatase Troponin I 2.8600 H* Total Protein Albumin Globulin Albumin/Globulin Ratio Triglycerides Cholesterol LDL Cholesterol Direct HDL Cholesterol TSH 3rd Generation 11/23/16 11/23/16 11/23/16 04:00 04:20 04:20 WBC 8.5 RBC 3.77 L Hgb 11.5 L Hct 34.9 L MCV 92.5 MCH 30.4 MCHC 32.9 L RDW 15.5 H Plt Count 220 MPV 8.6 Neut % (Auto) 77.4 H Lymph % (Auto) 14.4 L [place] % (Auto) 5.6 Eos % (Auto) 2.2 Baso % (Auto) 0.4 Neut # 6.6 Lymph # 1.2 [place] # 0.5 Eos # 0.2 Baso # 0.0 PT INR APTT 39.8 H Sodium 139 Potassium 3.9 Chloride 102 Carbon Dioxide 25 Anion Gap 15 BUN 37 H Creatinine 2.8 H Est GFR ( Amer) 27 Est GFR (Non-Af Amer) 23 Random Glucose 106 Calcium 8.4 Total Bilirubin 0.6 AST 34 ALT 55 Alkaline Phosphatase 69 Troponin I 2.2800 H* Total Protein 6.6 Albumin 3.6 Globulin 3.0 Albumin/Globulin Ratio 1.2 Triglycerides 97 Cholesterol 166 LDL Cholesterol Direct 97 HDL Cholesterol 39 TSH 3rd Generation 1.19 EKG/Cardiology Studies: Cardiology / EKG Studies 11/23/16 EKG [ELECTROCARDIOGRAM] Stat Comment: Mode Of Transportation: Reason For Exam: elevated troponin Review of Systems - EENT Eyes: absent: Change in Vision - Cardiovascular Cardiovascular: Leg Edema, Other (Chest tightness). absent: Chest Pain, Palpitations - Respiratory Respiratory: absent: Cough, Dyspnea - Gastrointestinal Gastrointestinal: absent: Abdominal Pain, Nausea, Vomiting - Neurological Neurological: absent: Dizziness, Focal Weakness, Headaches, Paresthesias - Psychiatric Psychiatric: absent: Anxiety, Depression Critical Care Progress Note - Nutrition Nutrition: Nutrition Category Date Time Status Heart Healthy Diet [DIET] Diets 11/22/16 Dinner Active Assessment/Plan - Assessment and Plan (Free Text) Assessment: 66 y/o obese male with PMH of poorly controlled HTN (which seems to be self managed) presented to ED with 2 day history of progressive SOB. Patient reports symptoms may have started gradually since one week prior to initial assessment. He also noted increasing fatigue/swelling of his lower extremities and SOB upon climbing 8 stairs. In the ED patient was found to have NSTEMI and was admitted to ICU for close monitoring pending possible cardiac intervention. Plan: NSTEMI -EKG performed in ED reveals Right bundle branch block nonspecific t wave inversions with no ST elevations -Repeat EKG this am detects persistent twave inversions in inferior leads -Serial troponins trending down but remain elevated: 4.0700 > 2.8600 > 2.2800 -Patient received ASA 325mg and loading dose of Plavix 300mg -Heparin bolus started followed by continuous infusion -ED contacted abimael Escalera heart interventionalist -Cardiology consultation by Dr Monteiro appreciated -Considering feasibility for coronary angiography. If anticipated, will start acetylcysteine due to concurrent deranged renal function -Continue continuous cardiac monitoring and daily EKG -O2 via NC -Continue daily ASA and plavix -Atorvastatin 80mg daily Hypertensive urgency -Patient has been inconsistently taking amlodipine 5mg BID and losartan 100mg daily, [place] -Received labetalol 20mg IV and clonidine 0.2mg PO once in ED -Initial BP: 211/127. Currently 150s/90s in nitroglycerin drip @5mcg/min -Labetalol 20mg IV and hydralazine 10 given overnight -Will maintain gradual BP lowering to acheive BP goal within several days -Metoprolol 25mg PO Q12 started yesterday and will consider Hydralazine as needed -On nitroglycerin drip Acute Heart Failure with Preserved Ejection Fraction -Bedside echo reveals normal LV wall thickness and ED of 50-55%. Mild inferior wall hypokinesis was also detected however study was technically difficult. -ProBNP [id number] -Lasix 40mg IV BID -Strict I/Os: Currently -750ml fluid balance -Daily weights -On Beta saundra -Patient not a good candidate for FANI-i at this time -Cardiology following Acute vs Chronic Kidney Injury -Patient unaware of any existing kidney disease -BUN/Cr improved slightly: 36/3.1 > 37/2.8 -Renal U/S unremarkable -Nephrology consult appreciated DVT Prophylaxis -On heparin drip -SCDs Code Status -Full code <Josue Hoyos - Last Filed: 11/23/16 18:22> CCU Subjective - Physician Review Subjective (Free Text): Attestation: Patient seen and examined at the bedside with Resident Dr. Rudy Dial; and I agree with his outline of plans and management documented as discussed on AM rounds reflecting my review of all applicable clinical data, and participation in the care of the patient throughout the day in ICU; today, November 23, 2016.
[2016-11-23] MEDS ORDERED: ACETYLCYSTEINE IV SCH (17:00)
[2016-11-23] MEDS ORDERED: DEXTROSE 5% IV SCH (17:00)
[2016-11-23] MEDS ORDERED: WATER IV SCH (17:00)
[2016-11-23] MEDS: Acetylcysteine 20% Inhal Soln (10ml) PO SCH (17:15)
[2016-11-23] MEDS ORDERED: Sodium Chloride 0.45% 1,000 ML IV SCH (17:15)
--- NOTE | 2016-11-23 18:57 | PN ---
DATE: 11/23/2016 SUBJECTIVE: The patient denies any chest pain. Shortness of breath has improved. PHYSICAL EXAMINATION: VITAL SIGNS: Blood pressure 154/97, heart rate 90, temperature 98.5, respirations 14. The patient w as started on IV for uncontrolled hypertension. HEENT: Normocephalic. NECK: No JVD. CHEST: Minimal rhonchi. HEART: S1, S2 regular. EXTREMITIES: 1+ pitting edema. LABORATORIES: Hemoglobin and hematocrit 11.5 and 34.9, white count and platelet count are within nor mal limits. PTT 54. Today's BUN and creatinine are 37 and 2.8 respectively. Troponin today is 2.28 . Today's EKG revealed sinus rhythm with frequent PVCs, right bundle branch block. Consider inferol ateral ischemia. Echocardiograph study performed yesterday revealed ejection fraction in the range o f 50%-55%, mild inferior wall hypokinesis. ASSESSMENT: 1. Status post non-ST elevation myocardial infarction. 2. Chronic renal insufficiency. 3. Hypertension and diabetes mellitus. RECOMMENDATIONS: Case was discussed with belt brander and with medical team. Continue current Lasix at 40 mg intravenous twice a day, Lopressor 25 mg twice a day, Lipitor at 80 mg once a day, Plavix 75 mg once a day. Continue IV heparin. Cardiac catheterization was recommended. The procedure and it s risks including the risk of worsening renal insufficiency was explained to the patient who understo od and agreed for the procedure. The patient will undergo the procedure tomorrow once cleared by the floorhand. The patient will receive Mucomyst 600 mg twice a day starting today. Gopi Monteiro MD cc: [id number] TT: 11/23/2016 18:56:17 Confirmation # [id number] Dictation # [id number]
--- NOTE | 2016-11-23 23:56 | CP.PCM.PN ---
Subjective - Date & Time of Evaluation Date of Evaluation: 11/23/16 Time of Evaluation: 13:00 - Subjective Subjective: PT WAS SEEN IN ICU ON RENAL F/U ALL PREVIOUS EMR REVIEWED CASE D/W DR JOYA THE PSYCHOLOGIST [facility] I AM GLAD TO SEE HIS RENAL FUNCTION IMPROVING .. eGFR 24--> 27 Objective - Vital Signs/Intake and Output Vital Signs (last 24 hours): Temp Pulse Resp BP Pulse Ox 98.5 F 76 26 H 206/108 H 98 11/23/16 20:00 11/23/16 23:00 11/23/16 23:00 11/23/16 23:00 11/23/16 20:00 Intake and Output: 11/23/16 11/24/16 18:59 06:59 Intake Total 1730 200 Output Total 1200 350 Balance 530 -150 - Medications Medications: Current Medications Acetylcysteine (Mucomyst 20% Inhal Ashlyn (10ml)) 6 ml PO BID [facility] Last Admin: 11/23/16 17:15 Dose: 6 ml Aspirin (Aspirin) 325 mg PO DAILY [facility] Last Admin: 11/23/16 08:00 Dose: 325 mg Atorvastatin Calcium (Lipitor) 80 mg PO DAILY [facility] Last Admin: 11/23/16 17:15 Dose: 80 mg Clopidogrel Bisulfate (Plavix) 75 mg PO DAILY [facility] Last Admin: 11/23/16 07:59 Dose: 75 mg Furosemide (Lasix) 40 mg IVP BID [facility] Last Admin: 11/23/16 17:15 Dose: 40 mg Heparin Sodium/Sodium Chloride (Heparin 45448 Units/250ml 1/2 Normal Saline) 25 ,000 units in 250 mls @ 12 mls/hr IV .[id number] [facility] PRN Reason: Protocol Last Admin: 11/23/16 11:07 Dose: 1,200 mls/hr Piperacillin Sod/Tazobactam (Sod 2.25 gm/ Sodium Chloride) 100 mls @ 100 mls/ hr IVPB Q8 [facility] Last Admin: 11/23/16 17:16 Dose: 100 mls/hr Nitroglycerin/Dextrose (Nitroglycerin 50 Mg/250 Ml D5w) 50 mg in 250 mls @ 1.5 mls/hr IV .Q24H ONE; 5 MCG/MIN PRN Reason: Protocol Stop: 11/24/16 09:20 Last Titration: 11/23/16 23:08 Dose: 40 mcg/min, 12 mls/hr Sodium Chloride (Sodium Chloride 0.45%) 1,000 mls @ 60 mls/hr IV .[id number] [facility] Stop: 11/24/16 17:04 Last Admin: 11/23/16 17:19 Dose: 60 mls/hr Metoprolol Tartrate (Lopressor) 25 mg PO Q12 [facility] Last Admin: 11/23/16 20:14 Dose: 25 mg Morphine Sulfate (Morphine) 2 mg IVP Q6H PRN PRN Reason: Pain, moderate (4-7) - Labs Labs: 11/23/16 04:20 11/23/16 04:20 PT 10.0 SECONDS (9.6-11.2) 11/22/16 11:00 INR 0.96 (0.92-1.08) 11/22/16 11:00 APTT 48.1 SECONDS (23.3-32.5) H 11/23/16 18:00 Assessment and Plan - Assessment and Plan (Free Text) Assessment: WANDY PROBABLY 2/2 PRE RENAL AZOTEMIA .. LOW CARDIAC OUTPUT ( STUNNED HEART ) R/O CKD AMI .. NEEDS CARDIAC CATH UNCONTROLED HTN P : START PT ON MUCOMIST HOLD ANY DUIRETICS AVOID ANY NEPHROTOXIC AGENT WILL F/U CLOSELY KALLI CARDIAC CATH
[2016-11-24 05:28] LABS: HEMATOCRIT 34.8 % (35.0-51.0); MEAN CELL VOLUME 92.7 fl (80.0-94.0); MEAN CORPUSCULAR HEMOGLOBIN 30.5 pg (27.0-31.0); MEAN CORPUSCULAR HGB CONC 32.9 g/dL (33.0-37.0); RED CELL DISTRIBUTION WIDTH 15.8 % (11.5-14.5); WHITE BLOOD COUNT 10.2 K/uL (4.8-10.8)
[2016-11-24 05:36] LABS: ALB/GLOB RATIO 1.2 (1.0-2.1); BILIRUBIN,TOTAL 0.5 mg/dl (0.2-1.3); CALCIUM 8.5 mg/dL (8.4-10.2); POTASSIUM 4.4 MMOL/L (3.6-5.0); TOTAL PROTEIN 6.7 G/DL (6.3-8.2)
[2016-11-24] MEDS: Heparin25000 units/250ml 1/2NS 25,000 UNITS/250 ML BAG IV SCH (08:45)
[2016-11-24] MEDS ORDERED: Labetalol 5mg/ml (4ml) IV PRN (09:11)
--- NOTE | 2016-11-24 10:14 | CP.CCUPN ---
<Bolivar Dial - Last Filed: 11/24/16 10:11> CCU Subjective - Physician Review Subjective (Free Text): 11/24/16 10:14 Patient seen and examined at bedside with ICU attending during morning rounds. He is sitting upright in bed and denies any chest pain or chest tightness overnight. He has been on nitroglycerin drip but continues to have elevated BP measurements this morning. He has been voiding freely and reports noticing decreased swelling his is lower extremity. Patient understands plan for cardiac cath today but is nervous about procedure. He remains afebrile and further denies headache, visual disturbances, cough, abdominal pain, nausea or vomiting. CCU Objective - Vital Signs / Intake & Output Vital Signs (Last 4 hours): Vital Signs Temp Pulse Resp BP Pulse Ox 11/24/16 09:00 94 H 21 212/118 H 98 11/24/16 08:47 97 H 186/105 H 11/24/16 08:46 186/105 H 11/24/16 08:00 98.5 F 86 13 186/105 H 96 11/24/16 07:00 91 H 17 198/109 H 98 Intake and Output (Last 8hrs): Intake & Output 11/23/16 11/24/16 11/24/16 22:59 06:59 14:59 Intake Total 1399 702 Output Total 1100 1675 100 Balance 299 -973 -100 Intake: IV 531 602 Intake, Piggyback 148 100 Oral 720 Output: Urine 1100 1675 100 Urine, Voided 1100 1675 100 Other: # Voids Urine, Voided 475 1 # Bowel Movements 1 1 - Physical Exam Head: Positive for: Atraumatic, Normocephalic Pupils: Positive for: PERRL Extroacular Muscles: Positive for: EOMI Conjunctiva: Positive for: Normal Mouth: Positive for: Moist Mucous Membranes Neck: Positive for: Normal Range of Motion Respiratory/Chest: Positive for: Rales (appreciated at lung bases b/l but improved from prior assessment), Other (B/L air entry present. ). Negative for : Respiratory Distress, Accessory Muscle Use, Wheezes, Tachypneic Cardiovascular: Positive for: Regular Rate and Rhythm, Normal S1, S2, Peripheal Pulses Present. Negative for: Tachycardic Abdomen: Positive for: Normal Bowel Sounds. Negative for: Tenderness, Distention, Guarding Upper Extremity: Positive for: Normal Inspection, NORMAL PULSES, Capillary Refill < 2s Lower Extremity: Positive for: Edema (1+). Negative for: CALF TENDERNESS Neurological: Positive for: CN II-XII Intact, Speech Normal Skin: Positive for: Warm, Dry. Negative for: Diaphoretic Psychiatric: Positive for: Alert, Oriented x 3, Normal Insight, Normal Concentration, Anxious - Medications Active Medications: Active Medications Generic Name Dose Route Start Last Admin Trade Name Freq PRN Reason Stop Dose Admin Acetaminophen 650 mg 11/24/16 03:08 11/24/16 03:14 Tylenol 325mg Tab PO 650 mg Q4 PRN Administration Headache Acetylcysteine 6 ml 11/23/16 17:00 11/23/16 17:15 Mucomyst 20% Inhal Ashlyn (10ml) PO 6 ml BID [facility] Administration Amlodipine Besylate 10 mg 11/24/16 09:00 11/24/16 08:47 Norvasc PO 10 mg DAILY [facility] Administration Aspirin 325 mg 11/23/16 09:00 11/24/16 08:50 Aspirin PO 325 mg DAILY [facility] Administration Atorvastatin Calcium 80 mg 11/23/16 11:15 11/24/16 08:46 Lipitor PO 80 mg DAILY [facility] Administration Clopidogrel Bisulfate 75 mg 11/23/16 09:00 11/24/16 08:48 Plavix PO 75 mg DAILY [facility] Administration Furosemide 40 mg 11/23/16 09:00 11/24/16 08:46 Lasix IVP 40 mg BID [facility] Administration Heparin Sodium/Sodium Chloride 25,000 units in 250 mls @ 12 mls/hr 11/23/16 06 :15 11/24/16 08:45 Heparin 09944 Units/250ml 1/2 Normal Saline IV 1,200 mls/hr .[id number] [facility] Administration Protocol Piperacillin Sod/Tazobactam 100 mls @ 100 mls/hr 11/23/16 09:00 11/24/16 08: 48 Sod 2.25 gm/ Sodium Chloride IVPB 100 mls/hr Q8 [facility] Administration Sodium Chloride 1,000 mls @ 60 mls/hr 11/23/16 17:15 11/23/16 17:19 Sodium Chloride 0.45% IV 11/24/16 17:04 60 mls/hr .[id number] [facility] Administration Labetalol HCl 20 mg 11/24/16 09:11 11/24/16 10:07 Trandate IV 20 mg Q4 PRN Administration Other Metoprolol Tartrate 50 mg 11/24/16 06:42 11/24/16 08:47 Lopressor PO 50 mg Q12 [facility] Administration Morphine Sulfate 2 mg 11/22/16 15:39 Morphine IVP Q6H PRN Pain, moderate (4-7) - Patient Studies Lab Studies: Microbiology Studies 11/22/16 13:00 Blood Culture - Preliminary Blood-Venous NO GROWTH AFTER 24 HOURS Lab Studies 11/24/16 11/24/16 11/24/16 Range/Units 04:20 04:20 04:20 WBC 10.2 (4.8-10.8) K/uL RBC 3.75 L (4.40-5.90) Mil/uL Hgb 11.4 L (12.0-18.0) g/dL Hct 34.8 L (35.0-51.0) % MCV 92.7 (80.0-94.0) fl MCH 30.5 (27.0-31.0) pg MCHC 32.9 L (33.0-37.0) g/dL RDW 15.8 H (11.5-14.5) % Plt Count 239 (130-400) K/uL APTT 51.3 H (23.3-32.5) SECONDS Sodium 141 (132-148) mmol/l Potassium 4.4 (3.6-5.0) MMOL/L Chloride 100 (98-107) mmol/L Carbon Dioxide 29 (22-30) mmol/L Anion Gap 16 (10-20) BUN 40 H (9-20) mg/dl Creatinine 3.2 H (0.8-1.5) mg/dL Est GFR ( Amer) 23 Est GFR (Non-Af Amer) 19 Random Glucose 109 (75-110) mg/dL Hemoglobin A1c (4.2-6.5) % Calcium 8.5 (8.4-10.2) mg/dL Total Bilirubin 0.5 (0.2-1.3) mg/dl AST 36 (17-59) U/L ALT 52 (21-72) U/L Alkaline Phosphatase 68 (38-126) U/L Total Protein 6.7 (6.3-8.2) G/DL Albumin 3.7 (3.5-5.0) g/dL Globulin 3.0 (2.2-3.9) gm/dL Albumin/Globulin Ratio 1.2 (1.0-2.1) 11/23/16 11/23/16 11/23/16 Range/Units 18:00 12:00 04:20 WBC (4.8-10.8) K/uL RBC (4.40-5.90) Mil/uL Hgb (12.0-18.0) g/dL Hct (35.0-51.0) % MCV (80.0-94.0) fl MCH (27.0-31.0) pg MCHC (33.0-37.0) g/dL RDW (11.5-14.5) % Plt Count (130-400) K/uL APTT 48.1 H 54.0 H (23.3-32.5) SECONDS Sodium (132-148) mmol/l Potassium (3.6-5.0) MMOL/L Chloride (98-107) mmol/L Carbon Dioxide (22-30) mmol/L Anion Gap (10-20) BUN (9-20) mg/dl Creatinine (0.8-1.5) mg/dL Est GFR ( Amer) Est GFR (Non-Af Amer) Random Glucose (75-110) mg/dL Hemoglobin A1c 5.6 (4.2-6.5) % Calcium (8.4-10.2) mg/dL Total Bilirubin (0.2-1.3) mg/dl AST (17-59) U/L ALT (21-72) U/L Alkaline Phosphatase (38-126) U/L Total Protein (6.3-8.2) G/DL Albumin (3.5-5.0) g/dL Globulin (2.2-3.9) gm/dL Albumin/Globulin Ratio (1.0-2.1) 11/23/16 Range/Units 00:13 WBC (4.8-10.8) K/uL RBC (4.40-5.90) Mil/uL Hgb (12.0-18.0) g/dL Hct (35.0-51.0) % MCV (80.0-94.0) fl MCH (27.0-31.0) pg MCHC (33.0-37.0) g/dL RDW (11.5-14.5) % Plt Count (130-400) K/uL APTT 50.2 H (23.3-32.5) SECONDS Sodium (132-148) mmol/l Potassium (3.6-5.0) MMOL/L Chloride (98-107) mmol/L Carbon Dioxide (22-30) mmol/L Anion Gap (10-20) BUN (9-20) mg/dl Creatinine (0.8-1.5) mg/dL Est GFR ( Amer) Est GFR (Non-Af Amer) Random Glucose (75-110) mg/dL Hemoglobin A1c (4.2-6.5) % Calcium (8.4-10.2) mg/dL Total Bilirubin (0.2-1.3) mg/dl AST (17-59) U/L ALT (21-72) U/L Alkaline Phosphatase (38-126) U/L Total Protein (6.3-8.2) G/DL Albumin (3.5-5.0) g/dL Globulin (2.2-3.9) gm/dL Albumin/Globulin Ratio (1.0-2.1) Laboratory Results - last 24 hr 11/23/16 11/23/16 11/23/16 00:13 04:20 12:00 WBC RBC Hgb Hct MCV MCH MCHC RDW Plt Count APTT 50.2 H 54.0 H Sodium Potassium Chloride Carbon Dioxide Anion Gap BUN Creatinine Est GFR ( Amer) Est GFR (Non-Af Amer) Random Glucose Hemoglobin A1c 5.6 Calcium Total Bilirubin AST ALT Alkaline Phosphatase Total Protein Albumin Globulin Albumin/Globulin Ratio 11/23/16 11/24/16 11/24/16 18:00 04:20 04:20 WBC 10.2 RBC 3.75 L Hgb 11.4 L Hct 34.8 L MCV 92.7 MCH 30.5 MCHC 32.9 L RDW 15.8 H Plt Count 239 APTT 48.1 H Sodium 141 Potassium 4.4 Chloride 100 Carbon Dioxide 29 Anion Gap 16 BUN 40 H Creatinine 3.2 H Est GFR ( Amer) 23 Est GFR (Non-Af Amer) 19 Random Glucose 109 Hemoglobin A1c Calcium 8.5 Total Bilirubin 0.5 AST 36 ALT 52 Alkaline Phosphatase 68 Total Protein 6.7 Albumin 3.7 Globulin 3.0 Albumin/Globulin Ratio 1.2 11/24/16 04:20 WBC RBC Hgb Hct MCV MCH MCHC RDW Plt Count APTT 51.3 H Sodium Potassium Chloride Carbon Dioxide Anion Gap BUN Creatinine Est GFR ( Amer) Est GFR (Non-Af Amer) Random Glucose Hemoglobin A1c Calcium Total Bilirubin AST ALT Alkaline Phosphatase Total Protein Albumin Globulin Albumin/Globulin Ratio EKG/Cardiology Studies: Cardiology / EKG Studies 11/24/16 09:00 EKG [ELECTROCARDIOGRAM] DAILY Comment: Mode Of Transportation: Reason For Exam: NSTEMI Review of Systems - Constitutional Constitutional: absent: Fever, Chills - EENT Eyes: absent: Change in Vision - Cardiovascular Cardiovascular: Pedal Edema. absent: Chest Pain, Diaphoresis, Dyspnea - Respiratory Respiratory: absent: Cough, Dyspnea, Hemoptysis - Gastrointestinal Gastrointestinal: absent: Abdominal Pain, Nausea, Vomiting - Neurological Neurological: absent: Dizziness, Focal Weakness, Headaches Critical Care Progress Note - Nutrition Nutrition: Nutrition Category Date Time Status Heart Healthy Diet [DIET] Diets 11/22/16 Dinner Active Assessment/Plan - Assessment and Plan (Free Text) Assessment: 66 y/o obese male with PMH of poorly controlled HTN (which seems to be self managed) presented to ED with 2 day history of progressive SOB. Patient reports symptoms may have started gradually since one week prior to initial assessment. He also noted increasing fatigue/swelling of his lower extremities and SOB upon climbing 8 stairs. In the ED patient was found to have NSTEMI and was admitted to ICU for close monitoring, pending cardiac catheterization for today. Plan: NSTEMI -EKG performed in ED reveals Right bundle branch block nonspecific t wave inversions with no ST elevations -Repeat EKG this am detects persistent twave inversions in inferior leads -Serial troponins elevated: 4.0700 > 2.8600 > 2.2800 -Patient received ASA 325mg and loading dose of Plavix 300mg -On continuous IV Heparin infusion -Cardiology consultation by Dr Monteiro appreciated -Plan for coronary angiography today. -Continue continuous cardiac monitoring and daily EKG -O2 via NC -Continue daily ASA and plavix -Atorvastatin 80mg daily Hypertensive urgency -Patient had been inconsistently taking amlodipine 5mg BID and losartan 100mg daily, [place] -BP overnight in 180s systolic and 100 diastolic range. Currently 150s/90s -On nitroglycerin drip -Metoprolol tartrate increased to 50mg PO Q12h -Will start Labetalol 20mg IV in D5 over 15 minutes Q4h for MAP >120 Acute Heart Failure with Preserved Ejection Fraction -Bedside echo reveals normal LV wall thickness and ED of 50-55%. Mild inferior wall hypokinesis was also detected however study was technically difficult. -ProBNP 73910 -Lasix 40mg IV BID -Strict I/Os: Currently -1200ml fluid balance -Daily weights -On Beta saundra -Patient not a good candidate for FANI-i at this time -Cardiology following Acute vs Chronic Kidney Injury -Patient unaware of any existing kidney disease -BUN/Cr: 40/3.2 -Renal U/S unremarkable -Acetylcysteine 1200mg BID started yesterday for protection against contrast related nephrotoxicity and will be continued for one day post cath -Nephrology consult appreciated DVT Prophylaxis -On heparin drip -SCDs Code Status -Full code <Josue Hoyos - Last Filed: 11/24/16 13:41> CCU Subjective - Physician Review Subjective (Free Text): Attestation: Patient seen and examined at the bedside with Resident Dr. Rudy Dial; and I agree with his outline of plans and management documented as discussed on AM rounds reflecting my review of all applicable clinical data, and participation in the care of the patient throughout the day in ICU; today, November 24, 2016.
--- NOTE | 2016-11-24 11:05 | CP.PCM.PN ---
<Mirian Toro - Last Filed: 11/25/16 08:47> Subjective - Date & Time of Evaluation Date of Evaluation: 11/24/16 Time of Evaluation: 11:03 - Subjective Subjective: d/w attending. no overnight event. denies chest pain. making urine. cardiac cath for today. Denies vision change, c/o occassional H/A. BP not well controlled. Objective - Vital Signs/Intake and Output Vital Signs (last 24 hours): Temp Pulse Resp BP Pulse Ox 98.5 F 61 16 154/92 H 98 11/24/16 08:00 11/24/16 10:00 11/24/16 10:00 11/24/16 10:00 11/24/16 10:00 Intake and Output: 11/24/16 11/24/16 06:59 18:59 Intake Total 1173 470 Output Total 2475 300 Balance -1302 170 - Medications Medications: Current Medications Acetaminophen (Tylenol 325mg Tab) 650 mg PO Q4 PRN PRN Reason: Headache Last Admin: 11/24/16 03:14 Dose: 650 mg Acetylcysteine (Mucomyst 20% Inhal Ashlyn (10ml)) 6 ml PO BID [facility] Last Admin: 11/23/16 17:15 Dose: 6 ml Amlodipine Besylate (Norvasc) 10 mg PO DAILY [facility] Last Admin: 11/24/16 08:47 Dose: 10 mg Aspirin (Aspirin) 325 mg PO DAILY [facility] Last Admin: 11/24/16 08:50 Dose: 325 mg Atorvastatin Calcium (Lipitor) 80 mg PO DAILY [facility] Last Admin: 11/24/16 08:46 Dose: 80 mg Clopidogrel Bisulfate (Plavix) 75 mg PO DAILY [facility] Last Admin: 11/24/16 08:48 Dose: 75 mg Furosemide (Lasix) 40 mg IVP BID [facility] Last Admin: 11/24/16 08:46 Dose: 40 mg Heparin Sodium/Sodium Chloride (Heparin 81365 Units/250ml 1/2 Normal Saline) 25 ,000 units in 250 mls @ 12 mls/hr IV .[id number] [facility] PRN Reason: Protocol Last Admin: 11/24/16 08:45 Dose: 1,200 mls/hr Piperacillin Sod/Tazobactam (Sod 2.25 gm/ Sodium Chloride) 100 mls @ 100 mls/ hr IVPB Q8 [facility] Last Admin: 11/24/16 08:48 Dose: 100 mls/hr Sodium Chloride (Sodium Chloride 0.45%) 1,000 mls @ 60 mls/hr IV .[id number] [facility] Stop: 11/24/16 17:04 Last Admin: 11/23/16 17:19 Dose: 60 mls/hr Labetalol HCl (Trandate) 20 mg IV Q4 PRN PRN Reason: Other Last Admin: 11/24/16 10:07 Dose: 20 mg Metoprolol Tartrate (Lopressor) 50 mg PO Q12 [facility] Last Admin: 11/24/16 08:47 Dose: 50 mg Morphine Sulfate (Morphine) 2 mg IVP Q6H PRN PRN Reason: Pain, moderate (4-7) - Labs Labs: 11/24/16 04:20 11/24/16 04:20 PT 10.0 SECONDS (9.6-11.2) 11/22/16 11:00 INR 0.96 (0.92-1.08) 11/22/16 11:00 APTT 51.3 SECONDS (23.3-32.5) H 11/24/16 04:20 - Constitutional Appears: Non-toxic, No Acute Distress - Head Exam Head Exam: NORMAL INSPECTION - Eye Exam Eye Exam: Normal appearance - ENT Exam ENT Exam: Mucous Membranes Moist - Neck Exam Neck Exam: Normal Inspection - Respiratory Exam Respiratory Exam: Clear to Ausculation Bilateral - Cardiovascular Exam Cardiovascular Exam: REGULAR RHYTHM - GI/Abdominal Exam GI & Abdominal Exam: Soft - Extremities Exam Extremities Exam: Normal Inspection - Back Exam Back Exam: NORMAL INSPECTION - Neurological Exam Neurological Exam: Alert, Oriented x3 - Skin Skin Exam: Dry, Warm Assessment and Plan - Assessment and Plan (Free Text) Assessment: 66yo M with PMHx HTN admitted for NSTEMI. 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 pneumonia -Zosyn acute on CKD -nephro on board, appreciate input -hold lasix IV CHF exacerbation -ECHO LVEF 50-55%, myocardial segments not well visualized, mild inferior wall hypokinesis -hold lasix IV -cardio on board, appreciate input DVT ppx -SCDs -held pharmacological agents d/t procedure <Brown,Trev K - Last Filed: 11/25/16 18:01> Objective - Vital Signs/Intake and Output Vital Signs (last 24 hours): Temp Pulse Resp BP Pulse Ox 98.4 F 73 19 150/90 100 11/25/16 16:00 11/25/16 16:00 11/25/16 16:00 11/25/16 16:00 11/25/16 16:00 Intake and Output: 11/25/16 11/25/16 06:59 18:59 Intake Total 900 680 Output Total 250 650 Balance 650 30 - Medications Medications: Current Medications Acetaminophen (Tylenol 325mg Tab) 650 mg PO Q4 PRN PRN Reason: Headache Last Admin: 11/24/16 03:14 Dose: 650 mg Acetylcysteine (Mucomyst 20% Inhal Ashlyn (10ml)) 6 ml PO BID [facility] Last Admin: 11/25/16 16:48 Dose: 6 ml Aspirin (Aspirin) 325 mg PO DAILY [facility] Last Admin: 11/25/16 09:06 Dose: 325 mg Atorvastatin Calcium (Lipitor) 80 mg PO DAILY [facility] Last Admin: 11/25/16 08:20 Dose: 80 mg Clopidogrel Bisulfate (Plavix) 75 mg PO DAILY [facility] Last Admin: 11/25/16 08:20 Dose: 75 mg Heparin Sodium (Porcine) (Heparin) 5,000 units SC Q8 [facility] PRN Reason: Protocol Last Admin: 11/25/16 16:06 Dose: 5,000 units Piperacillin Sod/Tazobactam (Sod 2.25 gm/ Sodium Chloride) 100 mls @ 100 mls/ hr IVPB Q8 [facility] Last Admin: 11/25/16 16:09 Dose: 100 mls/hr Sodium Bicarbonate 100 meq/ (Dextrose) 1,100 mls @ 75 mls/hr IV .[id number] [facility] Stop: 11/25/16 21:54 Last Admin: 11/25/16 13:32 Dose: 75 mls/hr Labetalol HCl (Trandate) 20 mg IV Q4 PRN PRN Reason: Other Last Admin: 11/24/16 10:07 Dose: 20 mg Metoprolol Tartrate (Lopressor) 100 mg PO Q12 [facility] Last Admin: 11/25/16 08:22 Dose: 100 mg - Labs Labs: 11/25/16 04:40 11/25/16 04:40 PT 10.6 SECONDS (9.6-11.2) 11/25/16 12:20 INR 1.02 (0.92-1.08) 11/25/16 12:20 APTT 27.8 SECONDS (23.3-32.5) D 11/25/16 12:20 Assessment and Plan - Assessment and Plan (Free Text) Assessment: Patient seen and examined with residents in rounds. Case, condition, investigative work up and plan discussed in detail. Agree with residents progress note. Plan: As ordered. (Trev Brown MD)
--- NOTE | 2016-11-24 19:44 | CP.PCM.PN ---
Subjective - Date & Time of Evaluation Date of Evaluation: 11/24/16 Time of Evaluation: 13:00 - Subjective Subjective: PT WAS OFF THE FRLOOR FOR CARDIAC CATH D/W DR JOYA , DIRECTOR OF OUTPATIENT SERVICES ON MUCOMIST WILL CHECK BNP IN AM TO F/U ON RENAL FUNCTION Objective - Vital Signs/Intake and Output Vital Signs (last 24 hours): Temp Pulse Resp BP Pulse Ox 98 F 89 12 138/81 96 11/24/16 18:00 11/24/16 18:55 11/24/16 18:55 11/24/16 18:55 11/24/16 18:55 Intake and Output: 11/24/16 11/25/16 18:59 06:59 Intake Total 590 Output Total 1300 Balance -710 - Medications Medications: Current Medications Acetaminophen (Tylenol 325mg Tab) 650 mg PO Q4 PRN PRN Reason: Headache Last Admin: 11/24/16 03:14 Dose: 650 mg Acetylcysteine (Mucomyst 20% Inhal Ashlyn (10ml)) 6 ml PO BID [facility] Last Admin: 11/23/16 17:15 Dose: 6 ml Aspirin (Aspirin) 325 mg PO DAILY [facility] Last Admin: 11/24/16 08:50 Dose: 325 mg Atorvastatin Calcium (Lipitor) 80 mg PO DAILY [facility] Last Admin: 11/24/16 08:46 Dose: 80 mg Clopidogrel Bisulfate (Plavix) 75 mg PO DAILY [facility] Last Admin: 11/24/16 08:48 Dose: 75 mg Furosemide (Lasix) 40 mg IVP BID [facility] Last Admin: 11/24/16 18:47 Dose: 40 mg Heparin Sodium/Sodium Chloride (Heparin 50476 Units/250ml 1/2 Normal Saline) 25 ,000 units in 250 mls @ 12 mls/hr IV .[id number] [facility] PRN Reason: Protocol Last Admin: 11/24/16 08:45 Dose: 1,200 mls/hr Piperacillin Sod/Tazobactam (Sod 2.25 gm/ Sodium Chloride) 100 mls @ 100 mls/ hr IVPB Q8 [facility] Last Admin: 11/24/16 18:48 Dose: 100 mls/hr Labetalol HCl (Trandate) 20 mg IV Q4 PRN PRN Reason: Other Last Admin: 11/24/16 10:07 Dose: 20 mg Metoprolol Tartrate (Lopressor) 50 mg PO Q12 [facility] Last Admin: 11/24/16 08:47 Dose: 50 mg Morphine Sulfate (Morphine) 2 mg IVP Q6H PRN PRN Reason: Pain, moderate (4-7) - Labs Labs: 11/24/16 04:20 11/24/16 04:20 PT 10.0 SECONDS (9.6-11.2) 11/22/16 11:00 INR 0.96 (0.92-1.08) 11/22/16 11:00 APTT 51.3 SECONDS (23.3-32.5) H 11/24/16 04:20 Assessment and Plan - Assessment and Plan (Free Text) Assessment: WANDY Vs CKD Vs A ON CKD .. CREATINI 3.0 --> 3.3 WILL F/U ON RENAL FUNCTION
[2016-11-24] MEDS ORDERED: Nitroglycerin 50mg in D5W 50 MG/250 ML BOTTLE IV ONE (21:12)
[2016-11-25 05:24] LABS: HEMATOCRIT 33.7 % (35.0-51.0); MEAN CELL VOLUME 92.7 fl (80.0-94.0); MEAN CORPUSCULAR HEMOGLOBIN 30.5 pg (27.0-31.0); MEAN CORPUSCULAR HGB CONC 32.9 g/dL (33.0-37.0); RED CELL DISTRIBUTION WIDTH 15.6 % (11.5-14.5); WHITE BLOOD COUNT 9.8 K/uL (4.8-10.8)
[2016-11-25 05:37] LABS: ALB/GLOB RATIO 1.2 (1.0-2.1); BILIRUBIN,TOTAL 0.4 mg/dl (0.2-1.3); CALCIUM 8.9 mg/dL (8.4-10.2); POTASSIUM 3.8 MMOL/L (3.6-5.0); TOTAL PROTEIN 6.9 G/DL (6.3-8.2)
--- NOTE | 2016-11-25 08:20 | CP.CCUPN ---
<Bolivar Dial - Last Filed: 11/25/16 11:09> CCU Subjective - Physician Review Subjective (Free Text): 11/25/16 08:15 Patient seen and examined at bedside with ICU attending during morning rounds. He is laying in bed comfortably and denies any chest pain, chest tightness or SOB. Patient had cardiac cath performed yesterday at [facility] revealing proximal circumflex narrowing (final report pending). Patient tolerated procedure well but will likely require PCI of the RCA. His BP has been controlled overnight and his lower extremity edema continues to improve. He denies fever, headache, visual disturbances, cough, abdominal pain, nausea or vomiting. CCU Objective - Vital Signs / Intake & Output Vital Signs (Last 4 hours): Vital Signs Pulse Resp BP Pulse Ox 11/25/16 06:43 87 15 169/77 H 100 11/25/16 06:00 81 18 150/86 96 11/25/16 05:00 92 H 22 149/91 H 96 Intake and Output (Last 8hrs): Intake & Output 11/24/16 11/25/16 11/25/16 22:59 06:59 14:59 Intake Total 320 580 Output Total 550 100 450 Balance -230 480 -450 Intake: IV 240 480 Intake, Piggyback 100 Oral 80 Output: Urine 550 100 450 Urine, Voided 550 100 450 - Physical Exam Head: Positive for: Atraumatic, Normocephalic Pupils: Positive for: PERRL Extroacular Muscles: Positive for: EOMI Conjunctiva: Positive for: Normal Mouth: Positive for: Moist Mucous Membranes Neck: Positive for: Normal Range of Motion Respiratory/Chest: Positive for: Clear to Auscultation, Good Air Exchange. Negative for: Respiratory Distress, Accessory Muscle Use, Wheezes, Tachypneic Cardiovascular: Positive for: Regular Rate and Rhythm, Normal S1, S2, Peripheal Pulses Present. Negative for: Tachycardic Abdomen: Positive for: Normal Bowel Sounds. Negative for: Tenderness, Distention, Guarding Upper Extremity: Positive for: Normal Inspection, NORMAL PULSES, Capillary Refill < 2s Lower Extremity: Positive for: Edema (trace). Negative for: CALF TENDERNESS Neurological: Positive for: CN II-XII Intact, Speech Normal Skin: Positive for: Warm, Dry. Negative for: Diaphoretic Psychiatric: Positive for: Alert, Oriented x 3, Normal Insight, Normal Concentration - Medications Active Medications: Active Medications Generic Name Dose Route Start Last Admin Trade Name Freq PRN Reason Stop Dose Admin Acetaminophen 650 mg 11/24/16 03:08 11/24/16 03:14 Tylenol 325mg Tab PO 650 mg Q4 PRN Administration Headache Acetylcysteine 6 ml 11/23/16 17:00 11/23/16 17:15 Mucomyst 20% Inhal Ashlyn (10ml) PO 6 ml BID CATHY Administration Aspirin 325 mg 11/23/16 09:00 11/24/16 08:50 Aspirin PO 325 mg DAILY CATHY Administration Atorvastatin Calcium 80 mg 11/23/16 11:15 11/24/16 08:46 Lipitor PO 80 mg DAILY CATHY Administration Clopidogrel Bisulfate 75 mg 11/23/16 09:00 11/24/16 08:48 Plavix PO 75 mg DAILY CATHY Administration Piperacillin Sod/Tazobactam 100 mls @ 100 mls/hr 11/23/16 09:00 11/25/16 00: 13 Sod 2.25 gm/ Sodium Chloride IVPB 100 mls/hr Q8 CATHY Administration Sodium Bicarbonate 100 meq/ 1,100 mls @ 75 mls/hr 11/24/16 21:53 Dextrose IV 11/25/16 21:54 .[id number] [facility] Labetalol HCl 20 mg 11/24/16 09:11 11/24/16 10:07 Trandate IV 20 mg Q4 PRN Administration Other Metoprolol Tartrate 100 mg 11/25/16 06:42 Lopressor PO Q12 [facility] Morphine Sulfate 2 mg 11/22/16 15:39 Morphine IVP Q6H PRN Pain, moderate (4-7) - Patient Studies Lab Studies: Microbiology Studies 11/22/16 13:00 Blood Culture - Preliminary Blood-Venous NO GROWTH AFTER 48 HOURS 11/22/16 15:30 MRSA Culture (Admit) - Final Nose MRSA NOT DETECTED Lab Studies 11/25/16 11/25/16 Range/Units 04:40 04:40 WBC 9.8 (4.8-10.8) K/uL RBC 3.63 L (4.40-5.90) Mil/uL Hgb 11.1 L (12.0-18.0) g/dL Hct 33.7 L (35.0-51.0) % MCV 92.7 (80.0-94.0) fl MCH 30.5 (27.0-31.0) pg MCHC 32.9 L (33.0-37.0) g/dL RDW 15.6 H (11.5-14.5) % Plt Count 236 (130-400) K/uL Sodium 138 (132-148) mmol/l Potassium 3.8 (3.6-5.0) MMOL/L Chloride 99 (98-107) mmol/L Carbon Dioxide 27 (22-30) mmol/L Anion Gap 16 (10-20) BUN 40 H (9-20) mg/dl Creatinine 3.4 H (0.8-1.5) mg/dL Est GFR ( Amer) 22 Est GFR (Non-Af Amer) 18 Random Glucose 142 H (75-110) mg/dL Calcium 8.9 (8.4-10.2) mg/dL Total Bilirubin 0.4 (0.2-1.3) mg/dl AST 20 (17-59) U/L ALT 42 (21-72) U/L Alkaline Phosphatase 60 (38-126) U/L Total Protein 6.9 (6.3-8.2) G/DL Albumin 3.8 (3.5-5.0) g/dL Globulin 3.1 (2.2-3.9) gm/dL Albumin/Globulin Ratio 1.2 (1.0-2.1) Laboratory Results - last 24 hr 11/25/16 11/25/16 04:40 04:40 WBC 9.8 RBC 3.63 L Hgb 11.1 L Hct 33.7 L MCV 92.7 MCH 30.5 MCHC 32.9 L RDW 15.6 H Plt Count 236 Sodium 138 Potassium 3.8 Chloride 99 Carbon Dioxide 27 Anion Gap 16 BUN 40 H Creatinine 3.4 H Est GFR ( Amer) 22 Est GFR (Non-Af Amer) 18 Random Glucose 142 H Calcium 8.9 Total Bilirubin 0.4 AST 20 ALT 42 Alkaline Phosphatase 60 Total Protein 6.9 Albumin 3.8 Globulin 3.1 Albumin/Globulin Ratio 1.2 EKG/Cardiology Studies: Cardiology / EKG Studies 11/24/16 09:00 EKG [ELECTROCARDIOGRAM] DAILY Comment: Mode Of Transportation: Reason For Exam: NSTEMI Review of Systems - Constitutional Constitutional: absent: Fever, Chills - Cardiovascular Cardiovascular: absent: Chest Pain, Dyspnea - Respiratory Respiratory: absent: Cough, Hemoptysis - Gastrointestinal Gastrointestinal: absent: Abdominal Pain, Diarrhea, Nausea, Vomiting - Neurological Neurological: absent: Dizziness, Focal Weakness, Headaches Critical Care Progress Note - Nutrition Nutrition: Nutrition Category Date Time Status Heart Healthy Diet [DIET] Diets 11/22/16 Dinner Active Assessment/Plan - Assessment and Plan (Free Text) Assessment: 66 y/o obese male with PMH of poorly controlled HTN (which seems to be self managed) presented to ED with 2 day history of progressive SOB. Patient reports symptoms may have started gradually since one week prior to initial assessment. He also noted increasing fatigue/swelling of his lower extremities and SOB upon climbing 8 stairs. In the ED patient was found to have NSTEMI and was admitted to ICU for close monitoring, s/p cardiac cath on 11/24. Plan: NSTEMI -Had EKG performed on admission revealing Right bundle branch block and nonspecific t wave inversions with no ST elevations associated with elevated serial troponins: 4.0700 > 2.8600 > 2.2800 -Patient received ASA 325mg, loading dose of Plavix 300mg and was started on IV Heparin -Cardiology consultation by Dr Monteiro appreciated -Patient is s/p coronary angiography yesterday at [facility] revealing proximal circumflex narrowing and will likely require PCI of the RCA -Continue continuous cardiac monitoring and daily EKG -O2 via NC -Continue daily ASA and plavix -Continue heparin per ACS protocol -Atorvastatin 80mg daily Hypertensive urgency -Patient had been inconsistently taking amlodipine 5mg BID and losartan 100mg daily, [place] -BP overnight in 140s-150s systolic -Nitroglycerin drip discontinued -Metoprolol tartrate increased to 100mg PO Q12h -Labetalol 20mg IV in D5 over 15 minutes Q4h PRN for MAP >120 Acute Heart Failure with Preserved Ejection Fraction -Bedside echo reveals normal LV wall thickness and ED of 50-55%. Mild inferior wall hypokinesis was also detected however study was technically difficult. -ProBNP [id number] -Lasix 40mg IV BID discontinued -Strict I/Os: Currently -1300ml fluid balance -Daily weights -On Beta saundra -Patient not a good candidate for FANI-i at this time -Cardiology following Acute vs Chronic Kidney Injury -Patient unaware of any pre-existing kidney disease -BUN/Cr: 40/3.2 > 40/3.4 -S/p contrast during cardiac cath -Acetylcysteine 1200mg BID started yesterday for protection against contrast related nephrotoxicity and will be continued for one day post cath -D5 + 2 amps Sodium bicarb -Renal U/S unremarkable -Nephrology consult appreciated DVT Prophylaxis -On heparin drip -SCDs Code Status -Full code <Josue Hoyosn - Last Filed: 11/25/16 15:18> CCU Subjective - Physician Review Subjective (Free Text): Attestation: Patient seen and examined at the bedside with Resident Dr. Rudy Dial; and I agree with his outline of plans and management documented as discussed on AM rounds reflecting my review of all applicable clinical data, and participation in the care of the patient throughout the day in ICU; today, November 25, 2016.
[2016-11-25] MEDS: Acetylcysteine 20% Inhal Soln (10ml) PO SCH ×2 (08:34→16:48)
--- NOTE | 2016-11-25 08:45 | CP.PCM.PN ---
Addendum entered and electronically signed by Mirian Toro MD 11/25/16 08:49: HTN improved control -nitro drip stopped -metoprolol increased DVT ppx -SCDs Original Note: <Mirian Toro - Last Filed: 11/25/16 08:43> Subjective - Date & Time of Evaluation Date of Evaluation: 11/25/16 Time of Evaluation: 08:43 - Subjective Subjective: d/w attending. no overnight event. denies chest pain. making urine. cardiac cath tolerated yesterday. Denies vision change, c/o occassional H/A. BP improved Objective - Vital Signs/Intake and Output Vital Signs (last 24 hours): Temp Pulse Resp BP Pulse Ox 98.1 F 91 H 20 148/93 H 99 11/25/16 08:00 11/25/16 08:22 11/25/16 08:00 11/25/16 08:22 11/25/16 08:00 Intake and Output: 11/25/16 11/25/16 06:59 18:59 Intake Total 900 340 Output Total 250 450 Balance 650 -110 - Medications Medications: Current Medications Acetaminophen (Tylenol 325mg Tab) 650 mg PO Q4 PRN PRN Reason: Headache Last Admin: 11/24/16 03:14 Dose: 650 mg Acetylcysteine (Mucomyst 20% Inhal Ashlyn (10ml)) 6 ml PO BID [facility] Last Admin: 11/25/16 08:34 Dose: 6 ml Aspirin (Aspirin) 325 mg PO DAILY [facility] Last Admin: 11/24/16 08:50 Dose: 325 mg Atorvastatin Calcium (Lipitor) 80 mg PO DAILY [facility] Last Admin: 11/25/16 08:20 Dose: 80 mg Clopidogrel Bisulfate (Plavix) 75 mg PO DAILY [facility] Last Admin: 11/25/16 08:20 Dose: 75 mg Piperacillin Sod/Tazobactam (Sod 2.25 gm/ Sodium Chloride) 100 mls @ 100 mls/ hr IVPB Q8 [facility] Last Admin: 11/25/16 08:23 Dose: 100 mls/hr Sodium Bicarbonate 100 meq/ (Dextrose) 1,100 mls @ 75 mls/hr IV .[id number] [facility] Stop: 11/25/16 21:54 Labetalol HCl (Trandate) 20 mg IV Q4 PRN PRN Reason: Other Last Admin: 11/24/16 10:07 Dose: 20 mg Metoprolol Tartrate (Lopressor) 100 mg PO Q12 [facility]ATH[facility] Last Admin: 11/25/16 08:22 Dose: 100 mg Morphine Sulfate (Morphine) 2 mg IVP Q6H PRN PRN Reason: Pain, moderate (4-7) - Labs Labs: 11/25/16 04:40 11/25/16 04:40 PT 10.0 SECONDS (9.6-11.2) 11/22/16 11:00 INR 0.96 (0.92-1.08) 11/22/16 11:00 APTT 51.3 SECONDS (23.3-32.5) H 11/24/16 04:20 - Constitutional Appears: Non-toxic, No Acute Distress - Head Exam Head Exam: NORMAL INSPECTION - Eye Exam Eye Exam: Normal appearance - ENT Exam ENT Exam: Mucous Membranes Moist - Neck Exam Neck Exam: Normal Inspection - Respiratory Exam Respiratory Exam: Clear to Ausculation Bilateral - Cardiovascular Exam Cardiovascular Exam: REGULAR RHYTHM - GI/Abdominal Exam GI & Abdominal Exam: Soft - Extremities Exam Extremities Exam: Normal Inspection - Back Exam Back Exam: NORMAL INSPECTION - Neurological Exam Neurological Exam: Alert, Oriented x3 - Skin Skin Exam: Dry, Warm Assessment and Plan - Assessment and Plan (Free Text) Assessment: 66yo M with PMHx HTN admitted for NSTEMI. pending stent placement NSTEMI -ECHO LVEF 50-55%, myocardial segments not well visualized, mild inferior wall hypokinesis -EKG changes indicate NSTEMI -troponin + -JODY risk score:4, 20% risk of 14 day mortality/IN/ischemia -cardio on board, appreciate input -photoengraving helper on board, appreciate input -ASA, plavix -heparin drip -statin -cardiac cath 11/24/16 with blockage -stent placement scheduled HTN -uncontrolled -nitro drip -c/w home meds, held amlodipine -photoengraving helper on board, appreciate input pneumonia -Zosyn acute on CKD -nephro on board, appreciate input -hold lasix IV CHF exacerbation -ECHO LVEF 50-55%, myocardial segments not well visualized, mild inferior wall hypokinesis -hold lasix IV -cardio on board, appreciate input DVT ppx -heparin drip <Trev Brown K - Last Filed: 11/25/16 18:01> Objective - Vital Signs/Intake and Output Vital Signs (last 24 hours): Temp Pulse Resp BP Pulse Ox 98.4 F 73 19 150/90 100 11/25/16 16:00 11/25/16 16:00 11/25/16 16:00 11/25/16 16:00 11/25/16 16:00 Intake and Output: 11/25/16 11/25/16 06:59 18:59 Intake Total 900 680 Output Total 250 650 Balance 650 30 - Medications Medications: Current Medications Acetaminophen (Tylenol 325mg Tab) 650 mg PO Q4 PRN PRN Reason: Headache Last Admin: 11/24/16 03:14 Dose: 650 mg Acetylcysteine (Mucomyst 20% Inhal Ashlyn (10ml)) 6 ml PO BID [facility] Last Admin: 11/25/16 16:48 Dose: 6 ml Aspirin (Aspirin) 325 mg PO DAILY [facility] Last Admin: 11/25/16 09:06 Dose: 325 mg Atorvastatin Calcium (Lipitor) 80 mg PO DAILY [facility] Last Admin: 11/25/16 08:20 Dose: 80 mg Clopidogrel Bisulfate (Plavix) 75 mg PO DAILY [facility] Last Admin: 11/25/16 08:20 Dose: 75 mg Heparin Sodium (Porcine) (Heparin) 5,000 units SC Q8 [facility]ATH[facility] PRN Reason: Protocol Last Admin: 11/25/16 16:06 Dose: 5,000 units Piperacillin Sod/Tazobactam (Sod 2.25 gm/ Sodium Chloride) 100 mls @ 100 mls/ hr IVPB Q8 [facility] Last Admin: 11/25/16 16:09 Dose: 100 mls/hr Sodium Bicarbonate 100 meq/ (Dextrose) 1,100 mls @ 75 mls/hr IV .[id number] [facility] Stop: 11/25/16 21:54 Last Admin: 11/25/16 13:32 Dose: 75 mls/hr Labetalol HCl (Trandate) 20 mg IV Q4 PRN PRN Reason: Other Last Admin: 11/24/16 10:07 Dose: 20 mg Metoprolol Tartrate (Lopressor) 100 mg PO Q12 [facility] Last Admin: 11/25/16 08:22 Dose: 100 mg - Labs Labs: 11/25/16 04:40 11/25/16 04:40 PT 10.6 SECONDS (9.6-11.2) 11/25/16 12:20 INR 1.02 (0.92-1.08) 11/25/16 12:20 APTT 27.8 SECONDS (23.3-32.5) D 11/25/16 12:20 Assessment and Plan - Assessment and Plan (Free Text) Assessment: Patient seen and examined with residents in rounds. Case, condition, investigative work up and plan discussed in detail. Agree with residents progress note. Plan: As ordered. (Trev Brown MD)
[2016-11-25] MEDS ORDERED: Heparin25000 units/250ml 1/2NS 25,000 UNITS/250 ML BAG IV SCH (11:15)
[2016-11-25] MEDS ORDERED: Pneumococcal 23-Valent Vaccine IM ONE (12:51)
[2016-11-25 12:55] LABS: PARTIAL THROMBOPLASTIN TIME 27.8 SECONDS (23.3-32.5)
[2016-11-25] MEDS: Sodium Bicarbonate 8.4% 100 MEQ in Dextrose 5% In Water 1,000 ML IV SCH (13:32)
--- NOTE | 2016-11-25 16:18 | PN ---
DATE: 11/25/2016 SUBJECTIVE: The patient denies any chest pain or shortness of breath. No groin bleeding. PHYSICAL EXAMINATION: VITAL SIGNS: Blood pressure 137/82, heart rate 72, temperature 97.4, respirations 17. HEENT: Normocephalic. NECK: No JVD. CHEST: Clear. HEART: S1, S2 regular. EXTREMITIES: No groin hematoma, 1+ pitting edema. LABORATORIES: Hemoglobin and hematocrit 11.1 and 33.7. Today's BUN and creatinine are 40 and 3.4 re spectively. ASSESSMENT: 1. Status post non-ST elevation myocardial infarction. 2. Hypertension, diabetes mellitus. 3. Chronic renal insufficiency. RECOMMENDATIONS: The case was discussed with the medical team including the bankruptcy processor. The patien t can be started on subcutaneous heparin 5000 units q. 8 hours, aspirin 325 mg once a day to be jazmine nued, and Plavix 75 mg once a day. Continue Mucomyst 600 mg twice a day, Lipitor 80 mg once a day, L opressor 100 mg twice a day. Start clonidine at 0.1 mg t.i.d. As the patient's renal function impro ves, PCI will be scheduled for next week; however, the patient has not decided and he is asking to go home. The patient was advised to stay until more observation of his renal outcome. Gopi Monteiro MD cc: [id number] TT: 11/25/2016 16:17:17 Confirmation # [id number] Dictation # [id number]
--- NOTE | 2016-11-25 18:53 | CARD ---
APPROVED REPORT EKG Measurement Heart [id number] <Conclusion> Normal sinus rhythm Possible Left atrial enlargement Right bundle branch block T wave abnormality, consider inferior ischemia Abnormal ECG
--- NOTE | 2016-11-25 19:01 | CARD ---
APPROVED REPORT EKG Measurement Heart [id number] <Conclusion> Sinus rhythm with frequent premature ventricular complexes Possible Left atrial enlargement Right bundle branch block T wave abnormality, consider inferolateral ischemia Abnormal ECG
--- NOTE | 2016-11-25 19:11 | CARD ---
APPROVED REPORT EKG Measurement Heart [id number] WI 170P49 [id number] <Conclusion> Sinus tachycardia with occasional premature ventricular complexes Possible Left atrial enlargement Right bundle branch block T wave abnormality, consider inferior ischemia Abnormal ECG
--- NOTE | 2016-11-26 00:21 | CP.PCM.PN ---
Subjective - Date & Time of Evaluation Date of Evaluation: 11/25/16 Time of Evaluation: 14:00 - Subjective Subjective: SEEN ON RENAL F/U S/P CARDIA CATH FEELS BETTER .. BP IS MUCH BETTER CREATININ 3.2 --> 3.4 .. NOT VERY SIGNIFICANT Objective - Vital Signs/Intake and Output Vital Signs (last 24 hours): Temp Pulse Resp BP Pulse Ox 98.5 F 80 23 144/79 98 11/25/16 20:00 11/25/16 22:00 11/25/16 22:00 11/25/16 22:00 11/25/16 22:00 Intake and Output: 11/25/16 11/26/16 18:59 06:59 Intake Total 1790 380 Output Total 650 200 Balance 1140 180 - Medications Medications: Current Medications Acetaminophen (Tylenol 325mg Tab) 650 mg PO Q4 PRN PRN Reason: Headache Last Admin: 11/24/16 03:14 Dose: 650 mg Acetylcysteine (Mucomyst 20% Inhal Ashlyn (10ml)) 6 ml PO BID [facility] Last Admin: 11/25/16 16:48 Dose: 6 ml Aspirin (Aspirin) 325 mg PO DAILY [facility] Last Admin: 11/25/16 09:06 Dose: 325 mg Atorvastatin Calcium (Lipitor) 80 mg PO DAILY [facility] Last Admin: 11/25/16 08:20 Dose: 80 mg Clopidogrel Bisulfate (Plavix) 75 mg PO DAILY [facility] Last Admin: 11/25/16 08:20 Dose: 75 mg Heparin Sodium (Porcine) (Heparin) 5,000 units SC Q8 [facility] PRN Reason: Protocol Last Admin: 11/25/16 16:06 Dose: 5,000 units Piperacillin Sod/Tazobactam (Sod 2.25 gm/ Sodium Chloride) 100 mls @ 100 mls/ hr IVPB Q8 [facility] Last Admin: 11/25/16 16:09 Dose: 100 mls/hr Labetalol HCl (Trandate) 20 mg IV Q4 PRN PRN Reason: Other Last Admin: 11/24/16 10:07 Dose: 20 mg Metoprolol Tartrate (Lopressor) 100 mg PO Q12 [facility] Last Admin: 11/25/16 08:22 Dose: 100 mg - Labs Labs: 11/25/16 04:40 11/25/16 04:40 PT 10.6 SECONDS (9.6-11.2) 11/25/16 12:20 INR 1.02 (0.92-1.08) 11/25/16 12:20 APTT 27.8 SECONDS (23.3-32.5) D 11/25/16 12:20 Assessment and Plan - Assessment and Plan (Free Text) Assessment: PROBABLE CKD .. RENAL FUNCTION IS PROBABLY STABLE WITH LITTLE BUMP OF CREATININ C/O CURRENT CARE D/ W SAP BASIS
[2016-11-26] MEDS: Sodium Bicarbonate 8.4% 100 MEQ in Dextrose 5% In Water 1,000 ML IV SCH (00:29)
[2016-11-26 06:32] LABS: HEMATOCRIT 32.6 % (35.0-51.0); MEAN CELL VOLUME 92.4 fl (80.0-94.0); MEAN CORPUSCULAR HEMOGLOBIN 30.2 pg (27.0-31.0); MEAN CORPUSCULAR HGB CONC 32.7 g/dL (33.0-37.0); RED CELL DISTRIBUTION WIDTH 15.6 % (11.5-14.5); WHITE BLOOD COUNT 11.8 K/uL (4.8-10.8)
[2016-11-26 06:49] LABS: ALB/GLOB RATIO 1.1 (1.0-2.1); BILIRUBIN,TOTAL 0.2 mg/dl (0.2-1.3); CALCIUM 7.9 mg/dL (8.4-10.2); POTASSIUM 3.5 MMOL/L (3.6-5.0); TOTAL PROTEIN 6.1 G/DL (6.3-8.2)
--- NOTE | 2016-11-26 08:39 | PN ---
DATE: 11/26/2016 The patient seen and examined. Interim events noted. Consults noted and appreciated. Cardiology an d nephrology interventions noted and appreciated. The patient remains in intensive care unit. The p atient feels okay. Denies any chest pain or shortness of breath. PHYSICAL EXAMINATION: GENERAL: The patient is in no acute distress. VITAL SIGNS: Stable. HEART: S1, S2 normal, regular. LUNGS: Good bilateral air exchange. ABDOMEN: Soft, nontender. EXTREMITIES: No calf swelling, no tenderness, no acute ischemia. CENTRAL NERVOUS SYSTEM: Essentially unchanged. DIAGNOSTIC DATA: Available diagnostic data reviewed. Creatinine has jumped to 4. groundwater monitoring technician ing does not reveal significant arrhythmias. Overall, the patient is hemodynamically stable. We will watch kidney function closely. The patient is stable to transfer to telemetry floor. Case and plan discussed with patient and patient's son at bedside at length. PLAN: As ordered. Trev Brown MD cc: [id number] TT: 11/26/2016 08:38:37 Confirmation # [id number] Dictation # [id number]
[2016-11-26] MEDS: Acetylcysteine 20% Inhal Soln (10ml) PO SCH (09:41)
--- NOTE | 2016-11-26 16:47 | PN ---
DATE: 11/26/2016 The patient denies chest pain. No groin bleeding. PHYSICAL EXAMINATION: VITAL SIGNS: Blood pressure 161/92, heart rate 63, temperature 98.2 and respirations 18. HEENT: Normocephalic. NECK: No JVD. CHEST: Clear. HEART: S1, S2 regular. EXTREMITIES: 1+ pitting edema. LABORATORY DATA: Today's potassium is 3.5. Today's BUN and creatinine are 54 and 4.0. Today's hemo globin and hematocrit are 10.7 and 38.6. ASSESSMENT: 1. Coronary artery disease status post non-ST elevation myocardial infarction. 2. Worsening renal insufficiency. 3. Hypertension. 4. Diabetes mellitus. 5. Anemia. 6. Uncontrolled hypertension. RECOMMENDATIONS: Continue Lopressor 200 mg twice a day, heparin 5000 units subcutaneous q. 8 hours, aspirin 325 mg once a day, Plavix 75 mg once a day and start clonidine at 0.1 mg t.i.d. No coronary intervention is indicated until better improvement of the renal function. Gopi Monteiro MD cc: [id number] TT: 11/26/2016 16:47:04 Confirmation # [id number] Dictation # [id number]
--- NOTE | 2016-11-26 19:15 | CP.PCM.PN ---
Subjective - Date & Time of Evaluation Date of Evaluation: 11/26/16 Time of Evaluation: 19:14 - Subjective Subjective: cret WORSE post c cath now up to 4....< not uremic might need hd short term if not better soon or more symtomatic. Objective - Vital Signs/Intake and Output Vital Signs (last 24 hours): Temp Pulse Resp BP Pulse Ox 98.5 F 75 20 163/99 H 100 11/26/16 18:00 11/26/16 18:00 11/26/16 18:00 11/26/16 18:00 11/26/16 18:00 Intake and Output: 11/26/16 11/27/16 18:59 06:59 Intake Total 340 Output Total 200 Balance 140 - Medications Medications: Current Medications Acetaminophen (Tylenol 325mg Tab) 650 mg PO Q4 PRN PRN Reason: Headache Last Admin: 11/24/16 03:14 Dose: 650 mg Acetylcysteine (Mucomyst 20% Inhal Ashlyn (10ml)) 6 ml PO BID [facility] Last Admin: 11/26/16 09:41 Dose: 6 ml Aspirin (Aspirin) 325 mg PO DAILY [facility] Last Admin: 11/26/16 08:17 Dose: 325 mg Atorvastatin Calcium (Lipitor) 80 mg PO DAILY [facility] Last Admin: 11/26/16 08:19 Dose: 80 mg Clonidine HCl (Catapres) 0.1 mg PO TID [facility] Last Admin: 11/26/16 16:55 Dose: 0.1 mg Clopidogrel Bisulfate (Plavix) 75 mg PO DAILY [facility] Last Admin: 11/26/16 08:18 Dose: 75 mg Heparin Sodium (Porcine) (Heparin) 5,000 units SC Q8 [facility] PRN Reason: Protocol Last Admin: 11/26/16 16:54 Dose: 5,000 units Piperacillin Sod/Tazobactam (Sod 2.25 gm/ Sodium Chloride) 100 mls @ 100 mls/ hr IVPB Q8 [facility] Last Admin: 11/26/16 16:52 Dose: 100 mls/hr Labetalol HCl (Trandate) 20 mg IV Q4 PRN PRN Reason: Other Last Admin: 11/24/16 10:07 Dose: 20 mg Metoprolol Tartrate (Lopressor) 100 mg PO Q12 [facility] Last Admin: 11/26/16 08:17 Dose: 100 mg - Labs Labs: 11/26/16 05:30 11/26/16 05:30 PT 10.6 SECONDS (9.6-11.2) 11/25/16 12:20 INR 1.02 (0.92-1.08) 11/25/16 12:20 APTT 27.8 SECONDS (23.3-32.5) D 11/25/16 12:20 - Constitutional Appears: Non-toxic - Head Exam Head Exam: NORMAL INSPECTION - Eye Exam Pupil Exam: NORMAL ACCOMODATION - ENT Exam ENT Exam: Mucous Membranes Moist - Respiratory Exam Respiratory Exam: NORMAL BREATHING PATTERN - Cardiovascular Exam Cardiovascular Exam: REGULAR RHYTHM - GI/Abdominal Exam GI & Abdominal Exam: Soft, Normal Bowel Sounds - Extremities Exam Extremities Exam: Normal Inspection - Neurological Exam Neurological Exam: Alert, Awake Additional comments: no asterxis - Psychiatric Exam Psychiatric exam: Normal Affect - Skin Skin Exam: Dry, Warm
[2016-11-27 08:16] LABS: HEMATOCRIT 33.3 % (35.0-51.0); MEAN CELL VOLUME 92.8 fl (80.0-94.0); MEAN CORPUSCULAR HEMOGLOBIN 30.8 pg (27.0-31.0); MEAN CORPUSCULAR HGB CONC 33.2 g/dL (33.0-37.0); RED CELL DISTRIBUTION WIDTH 15.8 % (11.5-14.5); WHITE BLOOD COUNT 11.4 K/uL (4.8-10.8)
[2016-11-27 08:58] LABS: ALB/GLOB RATIO 1.2 (1.0-2.1); BILIRUBIN,TOTAL 0.3 mg/dl (0.2-1.3); CALCIUM 8.3 mg/dL (8.4-10.2); POTASSIUM 4.3 MMOL/L (3.6-5.0); TOTAL PROTEIN 6.5 G/DL (6.3-8.2)
--- NOTE | 2016-11-27 09:16 | PN ---
DATE: 11/27/2016 The patient is seen and examined. Interim events noted. Consults noted and appreciated. Cardiology and nephrology followup and interventions noted and appreciated. The patient feels okay. Denies an y chest pain or shortness of breath. PHYSICAL EXAMINATION: GENERAL: The patient is in no acute distress. VITAL SIGNS: Stable. HEART: S1, S2 normal, regular. LUNGS: Good bilateral air exchange. ABDOMEN: Soft, nontender. EXTREMITIES: No calf swelling, no tenderness. No acute ischemia. CENTRAL NERVOUS SYSTEM: Essentially unchanged. DIAGNOSTIC DATA: Available diagnostic data reviewed. Nephrology and cardiology followup and interve ntions noted and appreciated. Today's labs are pending. Telemetry monitoring does not reveal significant arrhythmias. Overall, the patient's general medical condition is stable. The patient's creatinine was getting wor se, and today's labs are pending. Overall, the patient is medically stable. Case was discussed with kitchen food assembler ____. The case was a lso discussed with the patient's son at length. PLAN: As ordered. Trev Brown MD cc: [id number] TT: 11/27/2016 09:16:16 Confirmation # [id number] Dictation # [id number]
[2016-11-27] MEDS: Acetylcysteine 20% Inhal Soln (10ml) PO SCH (16:21)
[2016-11-27] MEDS: Acetylcysteine 20% Inhal Soln (4ml) PO SCH (16:22)
--- NOTE | 2016-11-27 17:25 | PN ---
DATE: 11/27/2016 The patient denies any chest pain or shortness of breath. PHYSICAL EXAMINATION: VITAL SIGNS: Blood pressure 133/79, heart rate 62, temperature 98, respirations 18. HEENT: Normocephalic. NECK: No JVD. CHEST: Diminished breath sounds over the bases. HEART: S1, S2 regular. EXTREMITIES: No edema. LABORATORIES: Hemoglobin and hematocrit 11.1 and 33.3, white count and platelet count are 11.4 and 2 50,000. Today's BUN and creatinine are 58 and 3.7. ASSESSMENT: 1. Coronary artery disease, status post non-ST elevation myocardial infarction with significant prox imal right coronary artery disease and borderline disease of the mid circumflex artery. 2. Advanced renal insufficiency. 3. Hypertension and diabetes mellitus. RECOMMENDATIONS: Continue current acetylcysteine at 6 mL twice a day orally. Continue aspirin 325 m g once a day, clonidine 0.1 mg t.i.d., subcutaneous heparin 5000 units q. 8 hours, Lipitor at 80 mg o nce a day, Lopressor 100 mg twice a day, Plavix 75 mg once a day. I discussed the case with the [facility] physician, Dr. Brown. We will hold on future coronary intervention in view of worsening renal ins ufficiency. I recommended a 24-hour urinary collection and creatinine clearance measurement in antic ipation of future hemodialysis. Gopi Monetiro MD cc: [id number] TT: 11/27/2016 17:24:24 Confirmation # [id number] Dictation # [id number] en
[2016-11-28 05:44] LABS: HEMATOCRIT 29.9 % (35.0-51.0); MEAN CELL VOLUME 93.5 fl (80.0-94.0); MEAN CORPUSCULAR HEMOGLOBIN 30.3 pg (27.0-31.0); MEAN CORPUSCULAR HGB CONC 32.4 g/dL (33.0-37.0); RED CELL DISTRIBUTION WIDTH 15.6 % (11.5-14.5)
[2016-11-28 06:02] LABS: ALB/GLOB RATIO 1.2 (1.0-2.1); BILIRUBIN,TOTAL 0.3 mg/dl (0.2-1.3); CALCIUM 8.3 mg/dL (8.4-10.2); POTASSIUM 4.3 MMOL/L (3.6-5.0); TOTAL PROTEIN 5.8 G/DL (6.3-8.2)
[2016-11-28] MEDS: Acetylcysteine 20% Inhal Soln (4ml) PO SCH ×2 (09:16→16:59)
--- NOTE | 2016-11-28 10:43 | PN ---
DATE: 11/28/2016 The patient seen and examined. Interim events noted. Consults noted and appreciated. Cardiology an d nephrology followup and interventions noted and appreciated. The patient remains in progressive ca re unit on telemetry monitoring. The patient feels okay. Not complaining of chest pain. No shortne ss of breath. The patient just mentioned that he thinks that his stool looks darker. Nurse was inst ructed to collect a stool sample . The patient denies any abdominal pain, nausea, vomiting, di arrhea, constipation, any chest pain or shortness of breath. PHYSICAL EXAMINATION: GENERAL: The patient is in no acute distress. VITAL SIGNS: Stable. HEART: S1, S2 normal, regular. LUNGS: Good bilateral air exchange. ABDOMEN: Soft, nontender. EXTREMITIES: No calf swelling, no tenderness, no acute ischemia. CENTRAL NERVOUS SYSTEM: Essentially unchanged. DIAGNOSTIC DATA: Available diagnostic data reviewed. Telemetry monitoring does not reveal significa nt arrhythmias, QT interval is getting better from 3.6 to 3.4. White cell count was 11.4 yesterday. Overall, patient's renal function seems to be improving. The plan for cardiac intervention requiring intravenous will be planned at this time as per cardiology. Case and plan discussed with dennise ent. Trev Brown MD cc: [id number] TT: 11/28/2016 10:42:53 Confirmation # [id number] Dictation # [id number]
--- NOTE | 2016-11-28 12:15 | RAD ---
HISTORY: pneumonia COMPARISON: 11/22/2016 TECHNIQUE: Chest PA and lateral FINDINGS: LUNGS: Improvement of right middle lobe opacities. Minimal residual opacities noted. Linear opacity in the left lung base. PLEURA: No significant pleural effusion identified. No pneumothorax apparent. CARDIOVASCULAR: Normal. OSSEOUS STRUCTURES: The osseous structures demonstrate degenerative changes. VISUALIZED UPPER ABDOMEN: Upper abdomen is suboptimally evaluated. Surgical clips in the right upper quadrant projection. OTHER FINDINGS: None. IMPRESSION: Improvement of right middle lobe opacities. Please note that chest radiographs have low sensitivity for small pulmonary nodules. If indicated, chest CT should be obtained. Other findings as above.
--- NOTE | 2016-11-28 17:27 | PN ---
DATE: 11/28/2016 HISTORY OF PRESENT ILLNESS: The patient denies any chest pain or shortness of breath. He still has leg swelling. PHYSICAL EXAMINATION: VITAL SIGNS: Blood pressure 136/82, heart rate 62, temperature 98.5, respirations 20. HEENT: Normocephalic. NECK: No JVD. CHEST: Clear. HEART: S1, S2 regular. EXTREMITIES: 1+ pitting edema. LABORATORIES: Hemoglobin and hematocrit 9.7 and 29.9, white count and platelet count are within norm al limits. Today's BUN and creatinine 59 and 3.6. ASSESSMENT: 1. Status post non-ST elevation myocardial infarction. 2. Significant proximal right coronary artery disease. 3. Advanced renal insufficiency. 4. Diabetes mellitus. 5. Hypertension. RECOMMENDATIONS: Continue current aspirin 325 mg once a day, clonidine 0.1 mg t.i.d., subcutaneous h eparin 5000 units q. 8 hours, Lipitor 80 mg once a day, Lopressor 100 mg twice a day, Norvasc 5 mg on ce a day, IV Zosyn 2.25 grams q. 8 hours, Plavix 75 mg once a day. Case was discussed with the patient's family. Percutaneous coronary intervention will worsen his kid gerson function and probably to a significant degree. The patient will be maintained on medical therapy and if BUN and creatinine improve as an outpatient, then PCI will be scheduled to the proximal right coronary artery. In the meantime, I recommend performing 24-hour urinary collection for creatinine clearance measurement. Gopi Monteiro MD cc: [id number] TT: 11/28/2016 17:26:37 Confirmation # [id number] Dictation # [id number]
--- NOTE | 2016-11-28 23:17 | CP.PCM.PN ---
Subjective - Date & Time of Evaluation Date of Evaluation: 11/28/16 Time of Evaluation: 16:00 - Subjective Subjective: SEEN ON RENAL F/U ALL PREVIOUS EMR OVER THE WEEK END NOTED PT REMAINS ASYMPTOMATIC SOME WORSENING OF THE CREATININ HAPPENED CREATININ PEAKED AT 4.0 ON SAT.. CAME DOWN GRADUALY ON SUN AND MON ( TODAY ) PT SHOULD GO FOR STENT TO PREVENT [place] AND FURTHER CARDIAC MUSCLE WASTING IF MORE DETERIORATION IN RENAL FUNCTION ( EXPECTED ) THEN WE CAN INITIATE HD CASE D/W PT .. WILL D/W DR AGUILAR AND DR BAHENA P : C/O CURRENT CARE Objective - Vital Signs/Intake and Output Vital Signs (last 24 hours): Temp Pulse Resp BP Pulse Ox 97.4 F L 73 20 133/80 98 11/28/16 19:26 11/28/16 21:32 11/28/16 19:26 11/28/16 21:32 11/28/16 19:26 Intake and Output: 11/28/16 11/29/16 18:59 06:59 Intake Total 300 Output Total 1 Balance 299 - Medications Medications: Current Medications Acetaminophen (Tylenol 325mg Tab) 650 mg PO Q4 PRN PRN Reason: Headache Last Admin: 11/24/16 03:14 Dose: 650 mg Acetylcysteine (Acetylcysteine 20%) 6 ml PO BID [facility] Last Admin: 11/28/16 16:59 Dose: 6 ml Amlodipine Besylate (Norvasc) 5 mg PO DAILY [facility] Last Admin: 11/28/16 13:24 Dose: 5 mg Aspirin (Aspirin) 325 mg PO DAILY [facility] Last Admin: 11/28/16 09:13 Dose: 325 mg Atorvastatin Calcium (Lipitor) 80 mg PO DAILY [facility] Last Admin: 11/28/16 09:14 Dose: 80 mg Clonidine HCl (Catapres) 0.1 mg PO TID [facility] Last Admin: 11/28/16 16:58 Dose: 0.1 mg Clopidogrel Bisulfate (Plavix) 75 mg PO DAILY [facility] Last Admin: 11/28/16 09:13 Dose: 75 mg Heparin Sodium (Porcine) (Heparin) 5,000 units SC Q8 CATHY PRN Reason: Protocol Last Admin: 11/28/16 16:59 Dose: 5,000 units Piperacillin Sod/Tazobactam (Sod 2.25 gm/ Sodium Chloride) 100 mls @ 100 mls/ hr IVPB Q8 [facility] Last Admin: 11/28/16 16:59 Dose: 100 mls/hr Labetalol HCl (Trandate) 20 mg IV Q4 PRN PRN Reason: Other Last Admin: 11/24/16 10:07 Dose: 20 mg Metoprolol Tartrate (Lopressor) 100 mg PO Q12 [facility] Last Admin: 11/28/16 21:32 Dose: 100 mg - Labs Labs: 11/28/16 04:50 11/28/16 04:50 PT 10.6 SECONDS (9.6-11.2) 11/25/16 12:20 INR 1.02 (0.92-1.08) 11/25/16 12:20 APTT 27.8 SECONDS (23.3-32.5) D 11/25/16 12:20
[2016-11-29 06:48] LABS: HEMATOCRIT 29.3 % (35.0-51.0); MEAN CELL VOLUME 92.5 fl (80.0-94.0); MEAN CORPUSCULAR HEMOGLOBIN 30.8 pg (27.0-31.0); MEAN CORPUSCULAR HGB CONC 33.3 g/dL (33.0-37.0); RED CELL DISTRIBUTION WIDTH 15.5 % (11.5-14.5); WHITE BLOOD COUNT 10.4 K/uL (4.8-10.8)
[2016-11-29 06:52] LABS: ALB/GLOB RATIO 1.2 (1.0-2.1); BILIRUBIN,TOTAL 0.3 mg/dl (0.2-1.3); CALCIUM 8.5 mg/dL (8.4-10.2); POTASSIUM 4.5 MMOL/L (3.6-5.0); TOTAL PROTEIN 6.3 G/DL (6.3-8.2)
[2016-11-29] MEDS: Acetylcysteine 20% Inhal Soln (4ml) PO SCH ×2 (08:50→17:47)
--- NOTE | 2016-11-29 10:43 | PN ---
DATE: 11/29/2016 The patient was seen and examined. Interim events noted. Consults noted and appreciated. Nephrolog y and cardiology followup and intervention is noted and appreciated. The patient remains in progress howie care unit on telemetry monitoring. Denies any specific complaint. Wants to go home. No chest p ain, no shortness of breath. PHYSICAL EXAMINATION: GENERAL: The patient is in no acute distress. VITAL SIGNS: Stable. HEART: S1, S2 normal, regular. LUNGS: Good bilateral air entry. ABDOMEN: Soft, nontender. EXTREMITIES: No calf swelling, no tenderness, no acute ischemia. CENTRAL NERVOUS SYSTEM: Essentially unchanged. DIAGNOSTIC DATA: Available diagnostic data reviewed. Telemetry monitoring does not reveal significa nt arrhythmia. Overall, the patient's general medical condition is stable and improving. PLAN: As ordered. Creatinine level is 3.2, which is getting better. Acute renal failure is improvin g. Trev Brown MD cc: [id number] TT: 11/29/2016 10:42:58 Confirmation # [id number] Dictation # [id number]
--- NOTE | 2016-11-29 17:04 | PN ---
DATE: 11/29/2016 The patient denies chest pain or shortness of breath. PHYSICAL EXAMINATION: VITAL SIGNS: Blood pressure 100/67, heart rate 65, temperature 98.5, respirations 20. HEENT: Pale conjunctivae. CHEST: Clear. HEART: S1, S2 regular. EXTREMITIES: Trace edema. LABORATORIES: Hemoglobin and hematocrit 9.7 and 29.3. White count and platelet count are within nor mal limits. Today's BUN and creatinine are 62 and 3.2. ASSESSMENT: 1. Status post non-ST elevation myocardial infarction. 2. Worsening renal insufficiency. 3. Hypertension. 4. Diabetes mellitus. 5. Anemia. RECOMMENDATIONS: Continue current aspirin 325 mg once a day, clonidine 0.2 mg t.i.d., subcutaneous h eparin 5000 units q. 8 hours, Lipitor at 80 mg once a day, Lopressor 100 mg once a day, Norvasc 10 mg once a day, Plavix 75 mg once a day, Lipitor 20 mg intravenously q. 4 hours p.r.n. Case was discuss ed at length with the mergers and acquisitions banker, Dr. Correia. Coronary intervention may significantly worsen his re nal function and expedite plans for dialysis. The issue was also discussed with the patient who hims elf wants to go home today. Dr. Correia will discuss with the patient as the patient is ad vised to stay, then PCI will be considered on the right coronary artery at [facility] or [facility] in [place]. Gopi Monteiro MD cc: [phone] TT: 11/29/2016 17:03:14 Confirmation # [id number] Dictation # [id number]
--- NOTE | 2016-11-29 21:39 | CP.PCM.PN ---
Subjective - Date & Time of Evaluation Date of Evaluation: 11/29/16 Time of Evaluation: 14:00 - Subjective Subjective: SEEN ON RENAL F/U I AM GLAD THAT THE RENAL FUNCTION IS GOING BACK TO BASELINE .. HAD WANDY POST .. DYE INDUCED .. NOW BACK TO BASELINE D/W DR LIMA .. PT NEEDS STENT IN THE R MAIN .. 80 % OCCULSION CASE D/W PT ALSO AT LENGTH .. PT WAS MADE AWARE OF HIS RENAL FUNCTION PRIOR TO ANGIOGRAM AND AFTER .. ALSO WAS MADE AWARE OF THE NECCECITY OF THE STENT INSERTION .. ALSO WAS MADE AWARE OF THE PROBABILITY THAT HE WILL NEED HD AFTER THE STENT .. ALL HIS QUESTIONS WERE ANSWERED TO HIS SATISFACTION THE DISCUSION AND MEETING WITH PT WAS VERY SLOW AND I BELIEVE THAT HE FORMED A COMPLEE UNDERSTANDING OF HIS CONDITION PT ELECTED TO TABE A 1-2 WEEKS TO THINK ABOUT IT .. PT WAS GIVEN MY BISUNESS CARD WITH GREAT EMPHASIS ON MAKING APPOINTMENT FOR RENAL F/U P : PT IS CLEARED FROM RENAL FOR D/C HE DOESN'T WANT THE PROCEDURE BE DONE ARANA AWAY WILL F/U CLOSELY AN OUT PT Objective - Vital Signs/Intake and Output Vital Signs (last 24 hours): Temp Pulse Resp BP Pulse Ox 97.6 F 62 20 122/73 95 11/29/16 19:57 11/29/16 21:09 11/29/16 19:57 11/29/16 21:09 11/29/16 19:57 Intake and Output: 11/29/16 11/30/16 18:59 06:59 Intake Total 700 Balance 700 - Medications Medications: Current Medications Acetaminophen (Tylenol 325mg Tab) 650 mg PO Q4 PRN PRN Reason: Headache Last Admin: 11/24/16 03:14 Dose: 650 mg Acetylcysteine (Acetylcysteine 20%) 6 ml PO BID [facility] Last Admin: 11/29/16 17:47 Dose: 6 ml Amlodipine Besylate (Norvasc) 10 mg PO DAILY [facility] Last Admin: 11/29/16 08:56 Dose: 10 mg Aspirin (Aspirin) 325 mg PO DAILY [facility] Last Admin: 11/29/16 08:50 Dose: 325 mg Atorvastatin Calcium (Lipitor) 80 mg PO DAILY [facility] Last Admin: 11/29/16 08:41 Dose: 80 mg Clonidine HCl (Catapres) 0.2 mg PO TID [facility] Last Admin: 11/29/16 17:47 Dose: 0.2 mg Clopidogrel Bisulfate (Plavix) 75 mg PO DAILY [facility] Last Admin: 11/29/16 08:40 Dose: 75 mg Heparin Sodium (Porcine) (Heparin) 5,000 units SC Q8 CATHY PRN Reason: Protocol Last Admin: 11/29/16 17:48 Dose: 5,000 units Piperacillin Sod/Tazobactam (Sod 2.25 gm/ Sodium Chloride) 100 mls @ 100 mls/ hr IVPB Q8 [facility] Last Admin: 11/29/16 17:46 Dose: 100 mls/hr Labetalol HCl (Trandate) 20 mg IV Q4 PRN PRN Reason: Other Last Admin: 11/24/16 10:07 Dose: 20 mg Metoprolol Tartrate (Lopressor) 100 mg PO Q12 [facility] Last Admin: 11/29/16 21:09 Dose: 100 mg - Labs Labs: 11/29/16 05:20 11/29/16 05:20 PT 10.6 SECONDS (9.6-11.2) 11/25/16 12:20 INR 1.02 (0.92-1.08) 11/25/16 12:20 APTT 27.8 SECONDS (23.3-32.5) D 11/25/16 12:20
[2016-11-30 07:56] VITALS: BP 167/96; PULSE 72; RESP 20; TEMP 97.6; O2SAT 99
[2016-11-30] MEDS: Acetylcysteine 20% Inhal Soln (4ml) PO SCH (09:22)
--- NOTE | 2016-11-30 10:22 | CP.PCM.DIS ---
Provider - Provider Date of Admission: 11/22/16 10:30 Attending physician: Trev Brown MD Time Spent in preparation of Discharge (in minutes): 20 Diagnosis - Discharge Diagnosis (1) CHF (congestive heart failure) Status: Acute (2) Hypertensive urgency Status: Acute (3) NSTEMI (non-ST elevated myocardial infarction) Status: Acute Hospital Course - Lab Results Lab Results: Micro Results 11/26/16 14:23 Nose MRSA Culture (Admit) - Final MRSA NOT DETECTED 11/22/16 13:00 Blood-Venous Blood Culture - Final NO GROWTH AFTER 5 DAYS 11/22/16 13:00 Blood-Venous Gram Stain - Final TEST NOT PERFORMED 11/22/16 15:30 Nose MRSA Culture (Admit) - Final MRSA NOT DETECTED Most Recent Lab Values WBC 10.4 K/uL (4.8-10.8) 11/29/16 05:20 RBC 3.16 Mil/uL (4.40-5.90) L 11/29/16 05:20 Hgb 9.7 g/dL (12.0-18.0) L 11/29/16 05:20 Hct 29.3 % (35.0-51.0) L 11/29/16 05:20 MCV 92.5 fl (80.0-94.0) 11/29/16 05:20 MCH 30.8 pg (27.0-31.0) 11/29/16 05:20 MCHC 33.3 g/dL (33.0-37.0) 11/29/16 05:20 RDW 15.5 % (11.5-14.5) H 11/29/16 05:20 Plt Count 224 K/uL (130-400) 11/29/16 05:20 MPV 8.6 fl (7.2-11.7) 11/23/16 04:20 Neut % (Auto) 77.4 % (50.0-75.0) H 11/23/16 04:20 Lymph % (Auto) 14.4 % (20.0-40.0) L 11/23/16 04:20 [facility] [place] [facility] % (Auto) 5.6 % (0.0-10.0) 11/23/16 04:20 Eos % (Auto) 2.2 % (0.0-4.0) 11/23/16 04:20 Baso % (Auto) 0.4 % (0.0-2.0) 11/23/16 04:20 Neut # 6.6 K/uL (1.8-7.0) 11/23/16 04:20 Lymph # 1.2 K/uL (1.0-4.3) 11/23/16 04:20 [facility] # 0.5 K/uL (0.0-0.8) 11/23/16 04:20 Eos # 0.2 K/uL (0.0-0.7) 11/23/16 04:20 Baso # 0.0 K/uL (0.0-0.2) 11/23/16 04:20 PT 10.6 SECONDS (9.6-11.2) 11/25/16 12:20 INR 1.02 (0.92-1.08) 11/25/16 12:20 APTT 27.8 SECONDS (23.3-32.5) D 11/25/16 12:20 Sodium 138 mmol/l (132-148) 11/29/16 05:20 Potassium 4.5 MMOL/L (3.6-5.0) 11/29/16 05:20 Chloride 102 mmol/L (98-107) 11/29/16 05:20 Carbon Dioxide 26 mmol/L (22-30) 11/29/16 05:20 Anion Gap 15 (10-20) 11/29/16 05:20 BUN 62 mg/dl (9-20) H 11/29/16 05:20 Creatinine 3.2 mg/dL (0.8-1.5) H 11/29/16 05:20 Est GFR ( Amer) 23 11/29/16 05:20 Est GFR (Non-Af Amer) 19 11/29/16 05:20 Random Glucose 101 mg/dL (75-110) 11/29/16 05:20 Hemoglobin A1c 5.6 % (4.2-6.5) 11/23/16 04:20 Calcium 8.5 mg/dL (8.4-10.2) 11/29/16 05:20 Total Bilirubin 0.3 mg/dl (0.2-1.3) 11/29/16 05:20 AST 35 U/L (17-59) 11/29/16 05:20 ALT 57 U/L (21-72) 11/29/16 05:20 Alkaline Phosphatase 44 U/L (38-126) 11/29/16 05:20 Troponin I 2.2800 ng/mL (0.00-0.120) H* 11/23/16 04:20 NT-Pro-B Natriuret Pep 67756 pg/ml (0-900) H 11/22/16 08:26 Total Protein 6.3 G/DL (6.3-8.2) 11/29/16 05:20 Albumin 3.4 g/dL (3.5-5.0) L 11/29/16 05:20 Globulin 2.9 gm/dL (2.2-3.9) 11/29/16 05:20 Albumin/Globulin Ratio 1.2 (1.0-2.1) 11/29/16 05:20 Triglycerides 97 mg/DL (0-149) 11/23/16 04:20 Cholesterol 166 mg/dL (0-199) 11/23/16 04:20 LDL Cholesterol Direct 97 mg/dL (0-129) 11/23/16 04:20 HDL Cholesterol 39 MG/DL (30-70) 11/23/16 04:20 TSH 3rd Generation 1.19 mIU/ML (0.46-4.68) 11/23/16 04:20 Stool Occult Blood Positive (NEGATIVE) H 11/29/16 05:00 - Hospital Course Hospital Course: 66yo M with PMHx HTN admitted for NSTEMI with elevated troponin levels.. ECHO showed LVEF 50-55%, myocardial segments not well visualized, mild inferior wall hypokinesis. Cardiac cath with interventional cardio Dr. Rain 11/24/16 with RCA blockage (final report pending). Cardio Dr. Hatfield c/s for management and stent was recommended. New onset CKD prompted nephro Dr. Gonzalez c/s with recommendation for stent and likely HD afterwards. pt d/c in stable condition as he will return as outpt for PCI once renal function improved. Discharge Exam - Head Exam Head Exam: NORMAL INSPECTION - Eye Exam Eye Exam: Normal appearance - ENT Exam ENT Exam: Mucous Membranes Moist - Neck Exam Neck exam: Normal Inspection - Respiratory Exam Respiratory Exam: NORMAL BREATHING PATTERN - Cardiovascular Exam Cardiovascular Exam: REGULAR RHYTHM - GI/Abdominal Exam GI & Abdominal Exam: Normal Bowel Sounds, Soft - Extremities Exam Extremities exam: normal inspection - Back Exam Back exam: NORMAL INSPECTION - Neurological Exam Neurological exam: Alert, Oriented x3 - Skin Skin Exam: Dry, Warm Discharge Plan - Discharge Medications Prescriptions: amLODIPine [Norvasc] 10 mg PO DAILY #30 tab Aspirin 325 mg PO DAILY #30 tab Atorvastatin [Lipitor] 80 mg PO DAILY #30 tab cloNIDine [Catapres] 0.2 mg PO TID #30 tab Clopidogrel [Plavix] 75 mg PO DAILY #30 tab Metoprolol Tartrate [Lopressor] 100 mg PO Q12 #60 tab - Follow Up Plan Condition: STABLE Disposition: HOME/ ROUTINE Additional Instructions: Follow Up with Dr. Brown and Dr. Correia in 1 week: Dr. Trev Brown [facility] [address] [place] [address] Dr. Correia Nephrology [address] [place] [address] Referrals: Trev Brown MD [Staff Provider] - Thad Correia MD [Staff Provider] - Gopi Monteiro MD [Staff Provider] -
== END 2016-11-30 12:33 | disposition home or self-care (01) | DRG 280 ==
LOC: H.ER 06:54 → H.ERHOLD 10:30 → H.ICU/CCU 14:37 → H.TEL 11-26 10:20
PROVIDERS: ADMIT Internal Medicine; ATTEND Internal Medicine
PROC: 3E0234Z Introduction of Serum, Toxoid and Vaccine into Muscle, Percutaneous Approach (ICD-10-PCS; principal; 2016-11-24)
PROC: B206YZZ Plain Radiography of Right and Left Heart using Other Contrast (ICD-10-PCS; 2016-11-24)
PROC: 4A023N8 Measurement of Cardiac Sampling and Pressure, Bilateral, Percutaneous Approach (ICD-10-PCS; 2016-11-24)
DX: I21.4 Non-ST elevation (NSTEMI) myocardial infarction (principal); J18.9 Pneumonia, unspecified organism; I50.31 Acute diastolic (congestive) heart failure; N17.9 Acute kidney failure, unspecified; I13.0 Hypertensive heart and chronic kidney disease with heart failure and stage 1 through stage 4 chronic kidney disease, or unspecified chronic kidney disease; I16.0 Hypertensive urgency; I25.5 Ischemic cardiomyopathy; N18.9 Chronic kidney disease, unspecified; I25.10 Atherosclerotic heart disease of native coronary artery without angina pectoris; I45.10 Unspecified right bundle-branch block; D64.9 Anemia, unspecified; E11.9 Type 2 diabetes mellitus without complications; E66.9 Obesity, unspecified; Z68.36 Body mass index [BMI] 36.0-36.9, adult; Z23 Encounter for immunization; Z91.14 Patient's other noncompliance with medication regimen